=== PATIENT | female | born 1965 | race Caucasian/White ===

== ENCOUNTER 2016-07-21 14:19 | Observation (INO) | payer MEDICAID ==
--- NOTE | 2016-07-21 14:58 | ERPHSYRPT ---
- History of Present Illness Time Seen by Provider: 07/21/16 14:49 Historian: patient Exam Limitations: no limitations Patient Subjective Stated Complaint: transport car brought pt post drs appt for altered loc/chest pain Triage Nursing Assessment: pt states she felt fine after drs appt and on transport back home pt states she 'felt weird and chest was heavy' when this nurse went out to transport car, pt was unconscious but breathing--sternal rub woke pt up and pt got up to wheelcahir with standby assist. got out of wheelchair to bed without diff. pt skin warm and dry. pt states 'lt side feels funny and my chest is heavy' denies n/v. Physician History: The patient is a 51-year-old female who complains of left-sided chest pain and passing out while being a passenger in a car. She was in a transport vehicle after being seen for a monthly checkup at her primary care doctor's office when she developed left-sided chest pain, headache, and then blacking out until arriving at the ER. She still has left-sided chest pain. She still has a headache. She has not had an NH in the past. She states she's had 3 TIAs in the past. She takes no blood thinners. She's had 2 C-sections, tubal ligation , gallbladder removed, and tonsils removed. She does not smoke. Timing/Duration: today Activities at Onset: rest Quality: pressure Location: substernal Chest Pain Radiation: back Severity of Pain-Max: severe Severity of Pain-Current: severe Modifying Factors: Improves With: nothing Associated Symptoms: nausea, syncope Prior Chest Pain/Cardiac Workup: no prior chest pain Nitro Today/Relief: no nitro taken today Aspirin Treatment Today: no aspirin today Allergies/Adverse Reactions: codeine Allergy (Mild, Verified 07/21/16 14:27) aripiprazole [From Abilify] Allergy (Verified 07/21/16 14:27) aspirin Allergy (Verified 07/21/16 14:27) ibuprofen Allergy (Verified 07/21/16 14:27) ketorolac tromethamine [From Toradol] Allergy (Verified 07/21/16 14:27) quetiapine fumarate [From Seroquel] Allergy (Verified 07/21/16 14:27) tramadol Allergy (Verified 02/15/17 14:27) acetaminophen [From Vicodin] Adverse Reaction (Verified 07/21/16 14:27) VOMITED hydrocodone bitartrate [From Vicodin] Adverse Reaction (Verified 07/21/16 14:27) VOMITED Home Medications: Carvedilol 12.5 mg [Coreg 12.5 mg] 12.5 mg PO BID 09/28/15 [History] Levothyroxine Sodium 75 Mcg [Synthroid 75 Mcg] 100 mcg PO DAILY 09/28/15 [ History] Methylphenidate 5 mg [Ritalin 5 MG] 20 mg PO TID 12/09/15 [History] Alprazolam [Xanax Xr] 3 mg PO DAILY 05/07/16 [History] Chlorpromazine HCl 25 mg [Thorazine 25 mg] 100 mg PO BID 07/21/16 [History ] Hx Tetanus, Diphtheria Vaccination/Date Given: Yes Hx Influenza Vaccination/Date Given: Yes Hx Pneumococcal Vaccination/Date Given: No Immunizations Up to Date: Yes - Review of Systems Constitutional: No Fever, No Chills Eyes: No Symptoms Ears, Nose, & Throat: No Symptoms Respiratory: No Cough, No Dyspnea Cardiac: Chest Pain Abdominal/Gastrointestinal: No Abdominal Pain, No Nausea, No Vomiting, No Diarrhea Genitourinary Symptoms: No Dysuria Musculoskeletal: No Back Pain, No Neck Pain Skin: No Rash Neurological: Headache Psychological: No Symptoms Endocrine: No Symptoms Hematologic/Lymphatic: No Symptoms Immunological/Allergic: No Symptoms All Other Systems: Reviewed and Negative - Past Medical History Pertinent Past Medical History: Yes Neurological History: Migraines, TIA ENT History: No Pertinent History Cardiac History: Hypertension Respiratory History: No Pertinent History Endocrine Medical History: Hypothyroidism Musculoskeletal History: Arthritis, Degenerative Disk Disease, Fibromyalgia GI Medical History: GERD History: No Pertinent History Psycho-Social History: Anxiety, Attention Deficit Disorder, Depression, Panic Disorder Female Reproductive Disorders: No Pertinent History Other Medical History: Chronic Fatigue Syndrome, Herniated discs, Raynaud's. POLYCYSTIC KIDNEY DISEASE - Past Surgical History Past Surgical History: Yes Neuro Surgical History: No Pertinent History Cardiac: No Pertinent History Respiratory: No Pertinent History Gastrointestinal: Cholecystectomy Genitourinary: No Pertinent History Musculoskeletal: Other Female Surgical History: Section, Tubal Ligation Other Surgical History: neck fusion. carpal tunnel. raynauds surgery - Social History Smoking Status: Never smoker Exposure to second hand smoke: No Alcohol Use: None Drug Use: none Patient Lives Alone: No Significant Family History: hypertension - Female History Hx Now: No - Nursing Vital Signs Temperature: 97.9 F Temperature Source: Oral Pulse Rate: 86 Respiratory Rate: 18 Pain Intensity: 8 - Physical Exam General Appearance: moderate distress ([place] [facility] will need some labs and should probably nitroglycerin she has a chest pain) Eye Exam: PERRL/EOMI, other (right pupil is 5 to 6 mm and left pupil is 2 to 3 mm. Pt states pupils are normally equal.) Ears, Nose, Throat Exam: normal ENT inspection, moist mucous membranes Neck Exam: normal inspection, non-tender, supple, full range of motion Respiratory Exam: normal breath sounds, lungs clear, No respiratory distress Cardiovascular Exam: regular rate/rhythm, normal heart sounds Gastrointestinal/Abdomen Exam: soft, No tenderness, No mass Pelvic Exam: not done Rectal Exam: not done Back Exam: normal inspection, No CVA tenderness, No vertebral tenderness Extremity Exam: normal inspection, normal range of motion Neurologic Exam: alert, oriented x 3, cooperative, service administrator II-XII nml as tested, normal mood/affect, sensation nml, No motor deficits Skin Exam: normal color, warm, dry SpO2 Interpretation: normal SpO2: 97 Oxygen Delivery: Room Air - Course EKG Interpreted by Me: Sinus Rhythm, Left [place] Deviation, NORMAL QRS, NORMAL ST- T, Other (No change compared to EKG 11/17/15) - Radiology Exams Chest X-ray Interpretation: Teleradiologist Report, Negative - CT Exams Head CT Interpretation: Negative, Tele-radiologist Report Ordered Tests: Active Orders 24 hr Category Date Time Status Podiatric Medicine Professor STAT Care 07/21/16 17:02 Active Catheter-[place] STAT Care 07/21/16 17:10 Completed [place] [Catheter-[place]] STAT Care 07/21/16 16:58 Active IV Insertion STAT Care 07/21/16 14:58 Active CHEST 2 VIEWS (PA AND LAT) Stat Exams 07/21/16 15:00 Completed HEAD WITHOUT CONTRAST [CT] Stat Exams 07/21/16 14:58 Completed CBC W DIFF Stat Lab 07/21/16 15:40 Completed CMP Stat Lab 07/21/16 15:40 Completed CULTURE,URINE Stat Lab 07/21/16 17:11 Ordered Ethyl Alcohol,Urine Stat Lab 07/21/16 15:50 Completed PROTIME WITH INR Stat Lab 07/21/16 15:40 Completed PTT Stat Lab 07/21/16 15:40 Completed TROPONIN Q3H Lab 07/21/16 15:40 Completed TROPONIN Q3H Lab 07/21/16 18:00 Ordered TROPONIN Q3H Lab 07/21/16 21:00 Ordered TROPONIN Q3H Lab 07/22/16 00:00 Ordered TROPONIN Q3H Lab 07/22/16 03:00 Ordered UA Stat Lab 07/21/16 15:50 Completed UA Stat Lab 07/21/16 17:10 Completed Urine Triage Profile Stat Lab 07/21/16 15:50 Completed Lab/Rad Data: Laboratory Result Diagrams 07/21/16 15:40 07/21/16 15:40 Laboratory Results 07/21/16 07/21/16 07/21/16 Range/Units 17:10 15:50 15:50 WBC (4.0-10.5) K/mm3 RBC (4.1-5.4) M/mm3 Hgb (12.0-16.0) gm/dl Hct (35-47) % MCV (78-100) fl MCH (26-32) pg MCHC (32-36) g/dl RDW (11.5-14.0) % Plt Count (150-450) K/mm3 MPV (6-9.5) fl Gran % (36.0-66.0) % Lymphocytes % (24.0-44.0) % Monocytes % (0.0-12.0) % Eosinophils % (0.00-5.0) % Basophils % (0.0-0.4) % Basophils # (0-0.4) INR (0.8-3.0) PTT (25.3-37.0) SECONDS Sodium (136-145) mEq/L Potassium (3.5-5.1) mEq/L Chloride (98-107) mEq/L Carbon Dioxide (21-32) mEq/L Anion Gap (5-15) MEQ/L BUN (9-20) mg/dL Creatinine (0.55-1.30) mg/dl Estimated GFR ML/MIN Glucose (70-110) MG/DL Calcium (8.5-10.1) mg/dL Total Bilirubin (0.2-1.0) mg/dL AST (15-37) U/L ALT (12-78) U/L Alkaline Phosphatase (46-116) U/L Troponin I (0.000-0.056) ng/ml Serum Total Protein (6.4-8.2) gm/dL Albumin (3.4-5.0) g/dL Ur Collection Type CATH Urine Color LT.YELLOW (YELLOW) Urine Appearance CLEAR (CLEAR) Urine pH 7.5 7.5 (5-6) Ur Specific [place] 1.015 (1.005-1.025) Urine Protein NEGATIVE (Negative) Urine Glucose (UA) NEGATIVE (NEGATIVE) mg/dL Urine Ketones NEGATIVE (NEGATIVE) Urine Nitrite NEGATIVE (NEGATIVE) Urine Bilirubin NEGATIVE (NEGATIVE) Urine Urobilinogen 0.2 (0-1) mg/dL Urine WBC (Auto) NEGATIVE (NEGATIVE) Urine RBC (Auto) NEGATIVE (0-5) [place]/ul Urine Opiates Level NEG. (NEGATIVE) Ur Methadone NEG. (NEGATIVE) Urine Barbiturates NEG. (NEGATIVE) Ur Phencyclidine (PCP) NEG. (NEGATIVE) Urine Amphetamine NEG. (NEGATIVE) U Benzodiazepine Level POS. (NEGATIVE) Urine Cocaine NEG. (NEGATIVE) Urine Marijuana (THC) NEG. (NEGATIVE) Urine Ethyl Alcohol 0 (0.00-20) mg/dl Specimen Received 07/21/1716:10 07/21/16 07/21/16 07/21/16 Range/Units 15:50 15:40 15:40 WBC (4.0-10.5) K/mm3 RBC (4.1-5.4) M/mm3 Hgb (12.0-16.0) gm/dl Hct (35-47) % MCV (78-100) fl MCH (26-32) pg MCHC (32-36) g/dl RDW (11.5-14.0) % Plt Count (150-450) K/mm3 MPV (6-9.5) fl Gran % (36.0-66.0) % Lymphocytes % (24.0-44.0) % Monocytes % (0.0-12.0) % Eosinophils % (0.00-5.0) % Basophils % (0.0-0.4) % Basophils # (0-0.4) INR 0.88 (0.8-3.0) PTT 34.4 (25.3-37.0) SECONDS Sodium (136-145) mEq/L Potassium (3.5-5.1) mEq/L Chloride (98-107) mEq/L Carbon Dioxide (21-32) mEq/L Anion Gap (5-15) MEQ/L BUN (9-20) mg/dL Creatinine (0.55-1.30) mg/dl Estimated GFR ML/MIN Glucose (70-110) MG/DL Calcium (8.5-10.1) mg/dL Total Bilirubin (0.2-1.0) mg/dL AST (15-37) U/L ALT (12-78) U/L Alkaline Phosphatase (46-116) U/L Troponin I < 0.017 (0.000-0.056) ng/ml Serum Total Protein (6.4-8.2) gm/dL Albumin (3.4-5.0) g/dL Ur Collection Type VOID Urine Color LT.YELLOW (YELLOW) Urine Appearance CLEAR (CLEAR) Urine pH 7.5 (5-6) Ur Specific [place] 1.015 (1.005-1.025) Urine Protein NEGATIVE (Negative) Urine Glucose (UA) NEGATIVE (NEGATIVE) mg/dL Urine Ketones NEGATIVE (NEGATIVE) Urine Nitrite NEGATIVE (NEGATIVE) Urine Bilirubin NEGATIVE (NEGATIVE) Urine Urobilinogen 0.2 (0-1) mg/dL Urine WBC (Auto) NEGATIVE (NEGATIVE) Urine RBC (Auto) NEGATIVE (0-5) [place]/ul Urine Opiates Level (NEGATIVE) Ur Methadone (NEGATIVE) Urine Barbiturates (NEGATIVE) Ur Phencyclidine (PCP) (NEGATIVE) Urine Amphetamine (NEGATIVE) U Benzodiazepine Level (NEGATIVE) Urine Cocaine (NEGATIVE) Urine Marijuana (THC) (NEGATIVE) Urine Ethyl Alcohol (0.00-20) mg/dl Specimen Received 07/21/16 1550 07/21/16 07/21/16 Range/Units 15:40 15:40 WBC 4.9 (4.0-10.5) K/mm3 RBC 3.92 L (4.1-5.4) M/mm3 Hgb 12.1 (12.0-16.0) gm/dl Hct 36.9 (35-47) % MCV 94.1 (78-100) fl MCH 30.8 (26-32) pg MCHC 32.8 (32-36) g/dl RDW 13.2 (11.5-14.0) % Plt Count 261 (150-450) K/mm3 MPV 9.6 H (6-9.5) fl Gran % 69.0 H (36.0-66.0) % Lymphocytes % 22.7 L (24.0-44.0) % Monocytes % 6.1 (0.0-12.0) % Eosinophils % 1.8 (0.00-5.0) % Basophils % 0.4 (0.0-0.4) % Basophils # 0.02 (0-0.4) INR (0.8-3.0) PTT (25.3-37.0) SECONDS Sodium 141 (136-145) mEq/L Potassium 4.6 (3.5-5.1) mEq/L Chloride 106 (98-107) mEq/L Carbon Dioxide 25.8 (21-32) mEq/L Anion Gap 14.2 (5-15) MEQ/L BUN 19 (9-20) mg/dL Creatinine 1.20 (0.55-1.30) mg/dl Estimated GFR 50 ML/MIN Glucose 96 (70-110) MG/DL Calcium 9.0 (8.5-10.1) mg/dL Total Bilirubin 0.4 (0.2-1.0) mg/dL AST 423 H (15-37) U/L ALT 459 H (12-78) U/L Alkaline Phosphatase 111 (46-116) U/L Troponin I (0.000-0.056) ng/ml Serum Total Protein 7.2 (6.4-8.2) gm/dL Albumin 3.5 (3.4-5.0) g/dL Ur Collection Type Urine Color (YELLOW) Urine Appearance (CLEAR) Urine pH (5-6) Ur Specific [place] (1.005-1.025) Urine Protein (Negative) Urine Glucose (UA) (NEGATIVE) mg/dL Urine Ketones (NEGATIVE) Urine Nitrite (NEGATIVE) Urine Bilirubin (NEGATIVE) Urine Urobilinogen (0-1) mg/dL Urine WBC (Auto) (NEGATIVE) Urine RBC (Auto) (0-5) [place]/ul Urine Opiates Level (NEGATIVE) Ur Methadone (NEGATIVE) Urine Barbiturates (NEGATIVE) Ur Phencyclidine (PCP) (NEGATIVE) Urine Amphetamine (NEGATIVE) U Benzodiazepine Level (NEGATIVE) Urine Cocaine (NEGATIVE) Urine Marijuana (THC) (NEGATIVE) Urine Ethyl Alcohol (0.00-20) mg/dl Specimen Received - Progress Progress: unchanged Air Movement: good Progress Note: 07/21/16 16:58 Pt states she has not urinated for 24 hrs. 07/21/16 17:29 IV access has not been obtained after 12 attempts. Discussed with : Levi Will see patient in: hospital (observation) Counseled pt/family regarding: lab results, diagnosis, rad results - Departure Time of Disposition: 17:30 Departure Disposition: Observation (per Dr Sims) Clinical Impression: Chest pain Condition: Stable Critical Care Time: No
[2016-07-21 15:46] LABS: BASOPHIL % 0.4 % (0.0-0.4); Eosinophil % 1.8 % (0.00-5.0); Lymphocytes % 22.7 % (24.0-44.0); Mean Cell Volume 94.1 fl (78-100); Mean Platelet Volume 9.6 fl (6-9.5); Monocytes % 6.1 % (0.0-12.0); Platelet Count 261 K/mm3 (150-450); Red Blood Count 3.92 M/mm3 (4.1-5.4); Red Cell Distribution Width 13.2 % (11.5-14.0); White Blood Count 4.9 K/mm3 (4.0-10.5)
[2016-07-21 15:53] LABS: Mean Corpuscular Hemoglobin 30.8 pg (26-32)
[2016-07-21 16:04] LABS: COMPLETE URINE MICROSCOPIC? NO; Collection Type VOID; Ph 7.5 (5-6)
[2016-07-21 16:21] LABS: ALBUMIN 3.5 g/dL (3.4-5.0); ANION GAP 14.2 MEQ/L (5-15); BILIRUBIN,TOTAL 0.4 mg/dL (0.2-1.0); Carbon Dioxide 25.8 mEq/L (21-32); Potassium 4.6 mEq/L (3.5-5.1); Total Protein 7.2 gm/dL (6.4-8.2)
[2016-07-21 16:28] LABS: INR 0.88 (0.8-3.0); PROTIME 9.9 SECONDS (9.95-12.35)
[2016-07-21 16:30] LABS: PTT 34.4 SECONDS (25.3-37.0)
--- NOTE | 2016-07-21 16:36 | XRAY ---
Indication: Chest pain. Comparison: May 13, 2016. AP/lateral chest again demonstrates normal heart and lungs. Bony thorax intact. No new/acute findings.
--- NOTE | 2016-07-21 16:36 | XRAY ---
Indication: Syncope. Multiple contiguous axial images obtained through the head without contrast. Comparison: December 19, 2014 Stable normal appearing brain parenchyma, ventricles, and bony calvarium. Visualized paranasal sinuses and mastoid air cells are pneumatized and clear. Impression: Stable normal CT head without contrast exam. CTDI 69.79
[2016-07-21 17:26] LABS: Collection Type CATH
[2016-07-21 17:27] LABS: COMPLETE URINE MICROSCOPIC? NO; Ph 7.5 (5-6)
[2016-07-21] MEDS ORDERED: TYLENOL 325 MG PO PRN (17:53)
[2016-07-21] MEDS ORDERED: MAALOX ES 30 ML UNIT DOSE PO PRN (17:53)
[2016-07-21] MEDS ORDERED: Senokot-S Tablet PO PRN (17:53)
[2016-07-21] MEDS ORDERED: MILK OF MAGNESIA 30 ML PO PRN (17:53)
[2016-07-21] MEDS ORDERED: XYLOCAINE 1% HCL 20 ML MDV ONE (20:37)
[2016-07-21] MEDS ORDERED: SUBLIMAZE 100 MCG/2 ML IV ONE (21:03)
[2016-07-21] MEDS ORDERED: Nitrostat 0.4 MG Tablet SL ONE (21:09)
[2016-07-21] MEDS: Nitrostat 0.4 MG Tablet SL PRN ×3 (21:13→21:34)
[2016-07-21] MEDS: XANAX 1 MG PO PRN (21:13)
[2016-07-21] MEDS: THORAZINE PO SCH (22:31)
[2016-07-21] MEDS: Ritalin 5 MG PO SCH (22:32)
[2016-07-21] MEDS: COREG 12.5 MG PO SCH (22:33)
[2016-07-21] MEDS: SUBLIMAZE 100 MCG/2 ML IV PRN (22:41)
[2016-07-22] MEDS: SUBLIMAZE 100 MCG/2 ML IV PRN ×5 (03:16→19:51)
--- NOTE | 2016-07-22 08:20 | PCM.HP ---
History of Present Illness - Chief Complaint Chief Complaint: chest pain History of Present Illness: is a 51 year old female with no local physician, she was in a medi-cab on the way home from seeing Dr Choe her primary physician yesterday. She reports that she developed a crushing, heavy chest pain and then apparently there was a loss of consciousness. She continues to have heaviness in her chest , she reports there was some minimal improvement with nitro but not significant , fentanyl improves her pain. There is some associated dyspnea, no nausea/ vomiting or diaphoresis. - Review of Systems Constitutional: No Fever, No Chills Respiratory: No Cough, No Short Of Breath Cardiac: Chest Pain Abdominal/Gastrointestinal: No Abdominal Pain, No Nausea, No Vomiting, No Diarrhea Skin: No Rash All Other Systems: Reviewed and Negative Medications & Allergies Home Medications: Home Medication List Carvedilol 12.5 mg [Coreg 12.5 mg] 12.5 mg PO BID 09/28/15 [History Confirmed 07/21/16] Levothyroxine Sodium 75 Mcg [Synthroid 75 Mcg] 100 mcg PO DAILY 09/28/15 [ History Confirmed 07/21/16] Methylphenidate 5 mg [Ritalin 5 MG] 20 mg PO TID 12/09/15 [History Confirmed 07/21/16] Alprazolam [Xanax Xr] 3 mg PO DAILY 05/07/16 [History Confirmed 07/21/16] Chlorpromazine HCl 25 mg [Thorazine 25 mg] 100 mg PO BID 07/21/16 [ History Confirmed 07/21/16] Allergies/Adverse Reactions: Allergies Allergy/AdvReac Type Severity Reaction Status Date / Time codeine Allergy Mild Verified 07/21/16 14:27 aripiprazole [From Abilify] Allergy Verified 07/21/16 14:27 aspirin Allergy Verified 07/21/16 14:27 ibuprofen Allergy Verified 07/21/16 14:27 ketorolac tromethamine Allergy Verified 07/21/16 14:27 [From Toradol] quetiapine fumarate Allergy Verified 07/21/16 14:27 [From Seroquel] tramadol Allergy Verified 07/21/16 14:27 acetaminophen [From Vicodin] AdvReac VOMITED Verified 07/21/16 14:27 hydrocodone bitartrate AdvReac VOMITED Verified 07/21/16 14:27 [From Vicodin] - Past Medical History Past Medical History: Yes Neurological History: Migraines, TIA ENT History: No Pertinent History Cardiac History: Hypertension Respiratory History: No Pertinent History Endocrine Medical History: Hypothyroidism Musculoskelatal History: Arthritis, Degenerative Disk Disease, Fibromyalgia GI Medical History: GERD History: No Pertinent History Pyscho-Social History: Anxiety, Attention Deficit Disorder, Depression, Panic Disorder Reproductive Disorders: No Pertinent History Comment: Chronic Fatigue Syndrome, Herniated discs, Raynaud's. POLYCYSTIC KIDNEY DISEASE - Female History Are you now?: No - Past Surgical History Past Surgical History: Yes Neuro Surgical History: No Pertinent History Cardiac History: No Pertinent History Respiratory Surgery: No Pertinent History GI Surgical History: Cholecystectomy Genitourinary Surgical Hx: No Pertinent History Musculskeletal Surgical Hx: Other Female Surgical History: Section, Tubal Ligation Other Surgical History: neck fusion. carpal tunnel. raynauds surgery - Social History Smoking Status: Never smoker Exposure to second hand smoke: No Alcohol: None Drug Use: none Significant Family History: hypertension - Physical Exam Vital Signs: Vital Signs - 24 hr Temp Pulse Resp BP Pulse Ox 07/22/16 07:32 97.9 F 77 20 126/65 95 07/22/16 04:00 97.7 F 70 17 101/59 93 L 07/22/16 00:00 98.0 F 79 16 98/54 94 L 07/21/16 20:00 98.1 F 89 18 113/54 95 07/21/16 18:12 98.3 F 73 19 126/59 98 07/21/16 17:33 97.9 F 86 18 97 07/21/16 17:08 88 16 123/62 97 07/21/16 16:18 84 20 123/59 98 07/21/16 14:20 97.9 F 86 18 130/53 97 General Appearance: no apparent distress, alert Respiratory Exam: normal breath sounds, lungs clear, No respiratory distress Cardiovascular Exam: regular rate/rhythm, normal heart sounds, normal peripheral pulses Gastrointestinal/Abdomen Exam: soft, normal bowel sounds, No tenderness, No mass Extremity Exam: normal inspection, normal range of motion, pelvis stable Skin Exam: normal color, warm, dry, No rash Results - Labs Lab/Micro Results: Lab Results-Last 24 Hours 07/21/16 07/21/16 07/22/16 Range/Units 18:16 21:02 01:15 Troponin I < 0.017 < 0.017 < 0.017 (0.000-0.056) ng/ml Triglycerides (30-200) mg/dL Cholesterol (100-200) mg/dL LDL Cholesterol (5-99) mg/dL HDL Cholesterol (35-60) mg/dL Heart Disease Risk Ratio 07/22/16 07/22/16 Range/Units 04:05 04:05 Troponin I < 0.017 (0.000-0.056) ng/ml Triglycerides 78 (30-200) mg/dL Cholesterol 220 H (100-200) mg/dL LDL Cholesterol 107 H (5-99) mg/dL HDL Cholesterol 75 H (35-60) mg/dL Heart Disease Risk Ratio 2.9 - Other Procedures and Tests Respiratory Therapy 07/23/16 05:00 EKG ONCE 07/24/16 05:00 EKG ONCE Assessment/Plan (1) Chest pain Current Visit: Yes Status: Acute Assessment & Plan: IA ruled out but has multiple risk factors including TIA (hx of aspirin allergy) , will check d-dimer and echo. will consult [facility] cardiology to further risk stratify and help with further workup/management Code(s): R07.9 - CHEST PAIN, UNSPECIFIED (2) Polycystic kidney disease Current Visit: No Status: Chronic Code(s): Q61.3 - POLYCYSTIC KIDNEY, UNSPECIFIED (3) Renal insufficiency Current Visit: No Status: Chronic
[2016-07-22] MEDS: Protonix 40MG Tablet PO SCH (09:17)
[2016-07-22] MEDS: Ecotrin 325 MG PO SCH ×2 (09:17→09:18)
[2016-07-22] MEDS: COREG 12.5 MG PO SCH ×2 (09:17→21:53)
[2016-07-22] MEDS: THORAZINE PO SCH ×2 (09:17→21:53)
[2016-07-22] MEDS: Ritalin 5 MG PO SCH ×3 (09:17→21:53)
[2016-07-22] MEDS: Zofran 4 MG/2 ML VIAL IV PRN ×3 (09:23→21:59)
[2016-07-22] MEDS: XANAX 1 MG PO PRN ×2 (15:38→21:59)
[2016-07-23] MEDS: SUBLIMAZE 100 MCG/2 ML IV PRN ×2 (00:45→06:02)
[2016-07-23 04:24] LABS: HEPATITIS B VIRUS CORE TOT AB Non-Reactive (Non-Reactive); Hepatitis B Surface Ab.Quant. <3.50 mIU/mL (0.00-8.49)
[2016-07-23 06:25] LABS: BASOPHIL % 0.4 % (0.0-0.4); Eosinophil % 3.2 % (0.00-5.0); Granulocytes % 46.3 % (36.0-66.0); Lymphocytes % 41.4 % (24.0-44.0); Mean Platelet Volume 9.3 fl (6-9.5); Monocytes % 8.7 % (0.0-12.0); Platelet Count 260 K/mm3 (150-450); Red Blood Count 4.01 M/mm3 (4.1-5.4); Red Cell Distribution Width 13.6 % (11.5-14.0); White Blood Count 5.7 K/mm3 (4.0-10.5)
[2016-07-23 06:27] LABS: Mean Corpuscular Hemoglobin 30.6 pg (26-32)
[2016-07-23 06:44] LABS: ALBUMIN 3.2 g/dL (3.4-5.0); ALKALINE PHOSPHATASE 94 U/L (46-116); ANION GAP 11.4 MEQ/L (5-15); BILIRUBIN,TOTAL 0.5 mg/dL (0.2-1.0); BLOOD UREA NITROGEN 17 mg/dL (9-20); CHLORIDE 105 mEq/L (98-107); Carbon Dioxide 28.1 mEq/L (21-32); Glucose 102 MG/DL (70-110); Potassium 3.9 mEq/L (3.5-5.1); SGOT/AST 97 U/L (15-37); SGPT/ALT 247 U/L (12-78); SODIUM 141 mEq/L (136-145); Total Protein 7.1 gm/dL (6.4-8.2)
[2016-07-23 06:54] LABS: TROPONIN < 0.017 ng/ml (0.000-0.056)
--- NOTE | 2016-07-23 08:04 | CONS ---
CONSULT DATE: 07/22/2016 BRIEF HISTORY: This is a 51 year-old female who was seen because of chest pains. The patient states that she just came from a doctor's visit and apparently developed chest pain and passed out. She was then admitted at [facility]. Serial troponin I's have been normal. She described the pain as localized in the precordial area, tight with no other associated symptoms. She has been seen previously for chest pains and this was almost a year ago and apparently she did not having pharmacologic stress test. She stated that she can still get around without having any chest pains. She has never had myocardial infarction or heart failure. She denies any paroxysmal nocturnal dyspnea or orthopnea. She has a history of fibromyalgia. CARDIAC RISK FACTORS: Positive hypertension. No diabetes. No hyperlipidemia. She does not smoke. FAMILY HISTORY: Negative for premature coronary artery disease. CURRENT MEDICATIONS: Carvedilol, aspirin, Alprazolam, Fentanyl PRN, Thorazine, Ritalin. REVIEW OF SYSTEMS: FILTER PRESS TENDER: There is no history of stroke. RESPIRATORY: She has occasional cough but no hemoptysis. GI: No history of peptic ulcer or colon disorder. : Negative for dysuria or hematuria. PERIPHERAL VASCULAR: No history of DVT or claudication. PAST SURGICAL HISTORY: Included section, tubal ligation, neck surgery, carpal tunnel syndrome, cholecystectomy, surgery to the right wrist. SOCIAL HISTORY: She is . She denies any significant alcohol intake. PHYSICAL EXAMINATION: Her blood pressure is 101/59, respirations about 14. GENERAL: The patient is a middle aged female who is alert, oriented, not in any form of distress. HEENT: Unremarkable. NECK: No significant JVD. No carotid bruit. CHEST: The breath sounds are clear. There is some tenderness in the costochondral junction. CARDIAC: Heart tones are within normal. The rhythm is regular. There is no audible gallop. ABDOMEN: Soft with normal bowel sounds. No bruit. EXTREMITIES: No significant edema with palpable distal pulses. LAB DATA AND DIAGNOSTIC TESTS: The serial troponin I's are within normal. The EKG shows normal sinus rhythm, left anterior hemiblock. IMPRESSION: 1) Chest pains, myocardial infarction has been ruled out. I would suggest a coronary calcium scoring for risk stratification. If this is not feasible she would need a pharmacological stress test. 2) Hypertension currently controlled. RECOMMENDATION: Further recommendations will be made after all the tests have been completed.
--- NOTE | 2016-07-23 08:05 | PCM.DS ---
Discharge Summary Date of Admission: 07/21/16 17:51 Admitting Physician: ELY BELL Consults: Consults on Case 07/22/16 08:26 Cardiology Consult [Notify Mission Commander of Admit] ROUTINE 07/22/16 14:24 Consult Cardiology ROUTINE Primary Care Provider: ELLIOTT CHOE Allergies Allergies codeine Allergy (Mild, Verified 07/21/16 14:27) aripiprazole [From Abilify] Allergy (Verified 07/21/16 14:27) aspirin Allergy (Verified 07/21/16 14:27) ibuprofen Allergy (Verified 07/21/16 14:27) ketorolac tromethamine [From Toradol] Allergy (Verified 07/21/16 14:27) quetiapine fumarate [From Seroquel] Allergy (Verified 07/21/16 14:27) tramadol Allergy (Verified 07/21/16 14:27) acetaminophen [From Vicodin] Adverse Reaction (Verified 07/21/16 14:27) VOMITED hydrocodone bitartrate [From Vicodin] Adverse Reaction (Verified 07/21/16 14:27) VOMITED Hospital Summary - Hospital Course Hospital Course: patient was admitted with chest pain and possibly syncopal episode. [place] was ruled out, she was seen by cardiology who recommends outpatient calcium risk score. she is feeling better, initially LFT were moderately elevated, hepatitis profile was negative. liver u/s pending but LFT's have improved dramatically since admission so can be followed up on an outpatient basis. - Vitals & Intake/Output Vital Signs: Vital Signs Temperature 97.5 F 07/23/16 04:00 Pulse Rate 79 07/23/16 04:00 Respiratory Rate 16 07/23/16 04:00 Blood Pressure 117/56 07/23/16 04:00 O2 Sat by Pulse Oximetry 91 L 07/23/16 04:00 Intake & Output: Intake & Output 07/20/16 07/21/16 07/22/16 07/23/16 11:59 11:59 11:59 11:59 Intake Total 400 850 Output Total 1100 1350 Balance -700 -500 Weight 95.708 kg - Lab Result Diagrams: 07/23/16 06:17 07/23/16 06:17 Lab Results-Last 24 Hrs: Lab Results-Last 24 Hours 07/22/16 07/22/1607/23/17 Range/Units 09:08 09:08 06:17 WBC 5.7 (4.0-10.5) K/mm3 RBC 4.01 L (4.1-5.4) M/mm3 Hgb 12.3 (12.0-16.0) gm/dl Hct 38.1 (35-47) % MCV 95.0 (78-100) fl MCH 30.6 (26-32) pg MCHC 32.3 (32-36) g/dl RDW 13.6 (11.5-14.0) % Plt Count 260 (150-450) K/mm3 MPV 9.3 (6-9.5) fl Gran % 46.3 (36.0-66.0) % Lymphocytes % 41.4 (24.0-44.0) % Monocytes % 8.7 (0.0-12.0) % Eosinophils % 3.2 (0.00-5.0) % Basophils % 0.4 (0.0-0.4) % Basophils # 0.02 (0-0.4) D-Dimer 0.363 (0.00-0.49) mg/L Sodium (136-145) mEq/L Potassium (3.5-5.1) mEq/L Chloride (98-107) mEq/L Carbon Dioxide (21-32) mEq/L Anion Gap (5-15) MEQ/L BUN (9-20) mg/dL Creatinine (0.55-1.30) mg/dl Estimated GFR ML/MIN Glucose (70-110) MG/DL Calcium (8.5-10.1) mg/dL Total Bilirubin (0.2-1.0) mg/dL AST (15-37) U/L ALT (12-78) U/L Alkaline Phosphatase (46-116) U/L Troponin I (0.000-0.056) ng/ml Serum Total Protein (6.4-8.2) gm/dL Albumin (3.4-5.0) g/dL Hepatitis A IgM Ab Non-Reactive (Non-Reactive) Hep Bs Antigen Non-Reactive (Non-Reactive) Hep Bs Antibody, Quant <3.50 (0.00-8.49) mIU/mL Hep B Core Total Ab Ref Non-Reactive (Non-Reactive) Hepatitis C Antibody Non-Reactive (Non-Reactive) 07/23/16 Range/Units 06:17 WBC (4.0-10.5) K/mm3 RBC (4.1-5.4) M/mm3 Hgb (12.0-16.0) gm/dl Hct (35-47) % MCV (78-100) fl MCH (26-32) pg MCHC (32-36) g/dl RDW (11.5-14.0) % Plt Count (150-450) K/mm3 MPV (6-9.5) fl Gran % (36.0-66.0) % Lymphocytes % (24.0-44.0) % Monocytes % (0.0-12.0) % Eosinophils % (0.00-5.0) % Basophils % (0.0-0.4) % Basophils # (0-0.4) D-Dimer (0.00-0.49) mg/L Sodium 141 (136-145) mEq/L Potassium 3.9 (3.5-5.1) mEq/L Chloride 105 (98-107) mEq/L Carbon Dioxide 28.1 (21-32) mEq/L Anion Gap 11.4 (5-15) MEQ/L BUN 17 (9-20) mg/dL Creatinine 1.29 (0.55-1.30) mg/dl Estimated GFR 46 ML/MIN Glucose 102 (70-110) MG/DL Calcium 9.3 (8.5-10.1) mg/dL Total Bilirubin 0.5 (0.2-1.0) mg/dL AST 97 H (15-37) U/L ALT 247 H (12-78) U/L Alkaline Phosphatase 94 (46-116) U/L Troponin I < 0.017 (0.000-0.056) ng/ml Serum Total Protein 7.1 (6.4-8.2) gm/dL Albumin 3.2 L (3.4-5.0) g/dL Hepatitis A IgM Ab (Non-Reactive) Hep Bs Antigen (Non-Reactive) Hep Bs Antibody, Quant (0.00-8.49) mIU/mL Hep B Core Total Ab Ref (Non-Reactive) Hepatitis C Antibody (Non-Reactive) - Radiology Exams Ordered Rad Exams-Entire Visit: Radiology Procedures Category Date Time Status LIVER OR SPLEEN [US] Stat Exams 07/22/16 08:41 Taken - Procedures and Test Procedures and Tests throughout Hospitalization: Therapy Orders & Screens 07/21/16 18:36 PT Screen per Nursing Assess ONCE Comment: Protocol Order Physician Instructions: Greater than 3 points order PT Admission Screenin Reason For Exam: Triggered on Admission Diagnosis: chest pain Open Wound/Cellutlitis/Pressure Ulcers: No Acute Fx/ORIF/Change in wt bearing status: No Severe MUSCULOSKELETAL pain: Yes ADL Dysfunction: No Acute CVA w/Hemiparesis/Hemiplegia: No Decreased Functional Mobility/Strength: No Sprain/Strain: No Acute Post-op Mobility Dysfunction: No Total Points: 5 07/21/16 22:00 EKG ONCE Comment: 07/22/16 05:00 EKG ONCE Comment: 07/23/16 05:00 EKG ONCE Comment: 07/24/16 05:00 EKG ONCE Comment: Discharge Exam General Appearance: no apparent distress, alert Respiratory Exam: normal breath sounds Cardiovascular Exam: regular rate/rhythm, normal heart sounds Gastrointestinal/Abdomen Exam: soft, No tenderness, No mass Extremity Exam: normal inspection, normal range of motion Final Diagnosis/Problem List - Final Discharge Diagnosis/Problem (1) Chest pain Current Visit: Yes Status: Acute Assessment & Plan: [place] ruled out, outpatient CTCA score to be ordered on discharge. (2) Elevated liver enzymes Current Visit: Yes Status: Acute Assessment & Plan: improved, needs repeated in 1 week (3) Polycystic kidney disease Current Visit: No Status: Chronic (4) Renal insufficiency Current Visit: No Status: Chronic - Discharge Disposition: Home, Self-Care Condition: Stable Prescriptions: Continue Levothyroxine Sodium 75 Mcg [Synthroid 75 Mcg] 100 mcg PO DAILY Carvedilol 12.5 mg [Coreg 12.5 mg] 12.5 mg PO BID Methylphenidate 5 mg [Ritalin 5 MG] 20 mg PO TID Alprazolam [Xanax Xr] 3 mg PO DAILY Chlorpromazine HCl 25 mg [Thorazine 25 mg] 100 mg PO BID Additional Instructions: F/U with Dr. Stokes upon discharge to schedule O/P testing (coronary calcium scoring) that is not offered by our hospital. F/U with Dr Choe next week to have liver functions repeated Follow up with: ELLIOTT CHOE [Primary Care Provider] - ANGELA MYERS [ACTIVE STAFF] - 1 Week
[2016-07-23] MEDS: Zofran 4 MG/2 ML VIAL IV PRN (08:39)
[2016-07-23 08:58] VITALS: BP 105/59; PULSE 70; O2SAT 94
[2016-07-23] MEDS: XANAX 1 MG PO PRN (09:12)
[2016-07-23] MEDS: Ritalin 5 MG PO SCH (09:12)
[2016-07-23] MEDS: COREG 12.5 MG PO SCH (09:12)
[2016-07-23] MEDS: THORAZINE PO SCH (09:12)
[2016-07-23] MEDS: Ecotrin 325 MG PO SCH (09:13)
[2016-07-23] MEDS: Protonix 40MG Tablet PO SCH (09:17)
--- NOTE | 2016-07-23 11:43 | XRAY ---
Indication: Elevated liver function testing. Chest pain. Cholecystectomy. Two-dimensional right upper quadrant abdominal sonogram performed. Comparison: Abdominal sonogram of May 07, 2016. Pancreas not well seen today due to overlying bowel gas. Gallbladder again surgically absent. Common bile duct measures 6 mm, previously 8mm. No intrahepatic biliary distention. Remaining visualized portions of the liver sonographically unremarkable. Normal portal flow. Right kidney measures 11.2 cm in length and again demonstrates a few small cortical cysts. No suspicious solid renal mass or hydronephrosis. No ascites. Impression: 1. Stable right renal cysts and previous cholecystectomy. 2. Nonvisualization of the pancreas. 3. Negative liver sonogram.
== END 2016-07-23 09:55 | disposition home or self-care (01) ==
LOC: ED 14:19 → MED SURG 17:51
PROVIDERS: ADMIT Family Medicine; ATTEND Family Medicine
DX: R07.89 Other chest pain (principal); R74.8 Abnormal levels of other serum enzymes; Q61.3 Polycystic kidney, unspecified; N28.9 Disorder of kidney and ureter, unspecified; I10 Essential (primary) hypertension; E03.9 Hypothyroidism, unspecified; M19.90 Unspecified osteoarthritis, unspecified site; M79.7 Fibromyalgia; K21.9 Gastro-esophageal reflux disease without esophagitis; F41.9 Anxiety disorder, unspecified; F98.8 Other specified behavioral and emotional disorders with onset usually occurring in childhood and adolescence; R53.82 Chronic fatigue, unspecified
CPT/HCPCS: 36415; 51702; 70450; 71020; 76705; 80053; 80061; 80074; 80307; 80320; 81002; 83721; 83986; 84484; 85025; 85379; 85610; 85730; 87086; 93005; 93041; 93268; 99284; 99285; G0378; J2405; J3010

== ENCOUNTER 2016-09-06 15:54 | Observation (INO) | payer MEDICAID ==
--- NOTE | 2016-09-06 16:12 | ERPHSYRPT ---
- History of Present Illness Time Seen by Provider: 09/06/16 15:59 Source: patient, EMS Physician History: CC: headache, right sided weakness, chest pain Hx: 51 y/o patient of Dr Choe brought per [facility]. She has hx of TIA last week seen at [facility] and had neurology consultation per Dr Bray. She states she has had headache and chest pain since yesterday. Today since 1:30PM she has right arm and leg weakness. Similar to symptoms last week. She has been under stress. She has hx of anxiety and depression. EMS states told them he thinks she has stress reaction and needs to see a mental health provider. Denies suicide ideation. Allergies/Adverse Reactions: codeine Allergy (Mild, Verified 09/06/16 16:09) aripiprazole [From Abilify] Allergy (Verified 09/06/16 16:09) aspirin Allergy (Verified 09/06/16 16:09) ibuprofen Allergy (Verified 09/06/16 16:09) ketorolac tromethamine [From Toradol] Allergy (Verified 09/06/16 16:09) quetiapine fumarate [From Seroquel] Allergy (Verified 09/06/16 16:09) tramadol Allergy (Verified 09/06/16 16:09) acetaminophen [From Vicodin] Adverse Reaction (Verified 09/06/16 16:09) VOMITED hydrocodone bitartrate [From Vicodin] Adverse Reaction (Verified 09/06/16 16:09) VOMITED Home Medications: Carvedilol 12.5 mg [Coreg 12.5 mg] 12.5 mg PO BID 09/28/15 [History] Levothyroxine Sodium 75 Mcg [Synthroid 75 Mcg] 100 mcg PO DAILY 09/28/15 [ History] Methylphenidate 5 mg [Ritalin 5 MG] 20 mg PO TID 12/09/15 [History] Alprazolam [Xanax Xr] 3 mg PO DAILY 05/07/16 [History] Chlorpromazine HCl 25 mg [Thorazine 25 mg] 100 mg PO BID 07/21/16 [History ] Hx Tetanus, Diphtheria Vaccination/Date Given: Yes Hx Influenza Vaccination/Date Given: Yes Hx Pneumococcal Vaccination/Date Given: No - Review of Systems Constitutional: No Fever, No Chills Eyes: No Symptoms, No Vision Changes, No Double Vision Ears, Nose, & Throat: No Symptoms Respiratory: No Cough, No Dyspnea Cardiac: Chest Pain Abdominal/Gastrointestinal: No Abdominal Pain, No Nausea, No Vomiting Genitourinary Symptoms: No Symptoms Musculoskeletal: No Back Pain, No Neck Pain Skin: No Rash Neurological: Focal Weakness (right arm and leg), Headache, No Parasthesia All Other Systems: Reviewed and Negative - Past Medical History Pertinent Past Medical History: Yes Neurological History: Migraines, TIA ENT History: No Pertinent History Cardiac History: Hypertension Respiratory History: No Pertinent History Endocrine Medical History: Hypothyroidism Musculoskeletal History: Arthritis, Degenerative Disk Disease, Fibromyalgia GI Medical History: GERD History: No Pertinent History Psycho-Social History: Anxiety, Attention Deficit Disorder, Depression, Panic Disorder Female Reproductive Disorders: No Pertinent History Other Medical History: Chronic Fatigue Syndrome, Herniated discs, Raynaud's. POLYCYSTIC KIDNEY DISEASE - Past Surgical History Past Surgical History: Yes Neuro Surgical History: No Pertinent History Cardiac: No Pertinent History Respiratory: No Pertinent History Gastrointestinal: Cholecystectomy Genitourinary: No Pertinent History Musculoskeletal: Other Female Surgical History: Section, Tubal Ligation Other Surgical History: neck fusion. carpal tunnel. raynauds surgery - Social History Smoking Status: Never smoker Exposure to second hand smoke: No Alcohol Use: None Drug Use: none Patient Lives Alone: No Significant Family History: hypertension - Female History Hx Now: No - Nursing Vital Signs Nursing Vital Signs: Initial Vital Signs Temperature 98.4 F Temperature Source Oral Pulse Rate 100 Respiratory Rate 16 Blood Pressure [Right Arm] 169/93 Pain Intensity 5 - Physical Exam General Appearance: alert Eye Exam: PERRL/EOMI Ears, Nose, Throat Exam: moist mucous membranes Neck Exam: normal inspection, non-tender, supple Respiratory Exam: normal breath sounds, lungs clear Cardiovascular Exam: regular rate/rhythm Gastrointestinal/Abdomen Exam: soft, No tenderness, No distention Extremity Exam: normal inspection Neurologic Exam: alert, oriented x 3, cooperative, other (right facial droop, right arm and leg weakness) Skin Exam: warm, dry - Course Nursing assessment & vital signs reviewed: Yes EKG Interpreted by Me: RATE (94), Sinus Rhythm, NORMAL AXIS, NORMAL INTERVALS ( QTc 438), Non-specific ST Changes - Radiology Exams cxr X-ray Interpretation: Reviewed by me, Negative - CT Exams head CT Interpretation: Negative, Tele-radiologist Report Ordered Tests: Active Orders 24 hr Category Date Time Status Space Systems Operations Manager STAT Care 09/06/16 15:59 Active EKG-ER Only STAT Care 09/06/16 15:59 Active IV Insertion STAT Care 09/06/16 15:59 Active NPO (ED) STAT Care 09/06/16 15:59 Active Pulse Oximetry (ED) STAT Care 09/06/16 15:59 Active Consult Neurology STAT Cons 09/06/16 16:02 Active CHEST 1 VIEW (PORTABLE) Stat Exams 09/06/16 15:59 Taken HEAD WITHOUT CONTRAST [CT] Stat Exams 09/06/16 15:59 Completed CBC W DIFF Stat Lab 09/06/16 16:40 Completed CMP Stat Lab 09/06/16 16:40 Completed Ethyl Alcohol,Urine Stat Lab 09/06/16 16:01 Ordered PROTIME WITH INR Stat Lab 09/06/16 16:40 Completed PTT Stat Lab 09/06/16 16:40 Completed TROPONIN Q3H Lab 09/06/16 16:40 Completed TROPONIN Q3H Lab 09/06/16 19:12 Received TROPONIN Q3H Lab 09/06/16 22:00 Ordered TROPONIN Q3H Lab 09/07/16 01:00 Ordered TROPONIN Q3H Lab 09/07/16 04:00 Ordered UA Stat Lab 09/06/16 16:02 Ordered Urine Triage Profile Stat Lab 09/06/16 16:02 Ordered Medication Summary Discontinued Medications Generic Name Dose Route Start Last Admin Trade Name Freq PRN Reason Stop Dose Admin Sodium Chloride Confirm 09/06/16 19:39 Sodium Chloride 0.9% 1000 Ml Administered 09/06/16 19:40 Dose 1,000 mls @ ud .ROUTE .STK-MED ONE Promethazine HCl 25 mg 09/06/16 18:06 09/06/16 18:23 Phenergan 25 Mg Inj IM 09/06/16 18:07 25 mg STAT ONE Administration Promethazine HCl Confirm 09/06/16 18:20 Phenergan 25 Mg Inj Administered 09/06/16 18:21 Dose 25 mg .ROUTE .STK-MED ONE Lab/Rad Data: Laboratory Result Diagrams 09/06/16 16:40 09/06/16 16:40 Laboratory Results 09/06/16 09/06/16 09/06/16 Range/Units 16:40 16:40 16:40 WBC (4.0-10.5) K/mm3 RBC (4.1-5.4) M/mm3 Hgb (12.0-16.0) gm/dl Hct (35-47) % MCV (78-100) fl MCH (26-32) pg MCHC (32-36) g/dl RDW (11.5-14.0) % Plt Count (150-450) K/mm3 MPV (6-9.5) fl Gran % (36.0-66.0) % Lymphocytes % (24.0-44.0) % Monocytes % (0.0-12.0) % Eosinophils % (0.00-5.0) % Basophils % (0.0-0.4) % Basophils # (0-0.4) INR 0.96 (0.8-3.0) PTT 35.0 (25.3-37.0) SECONDS Sodium 143 (136-145) mEq/L Potassium 4.4 (3.5-5.1) mEq/L Chloride 105 (98-107) mEq/L Carbon Dioxide 29.6 (21-32) mEq/L Anion Gap 12.5 (5-15) MEQ/L BUN 11 (9-20) mg/dL Creatinine 1.34 H (0.55-1.30) mg/dl Estimated GFR 44 ML/MIN Glucose 119 H (70-110) MG/DL Calcium 9.1 (8.5-10.1) mg/dL Total Bilirubin 0.4 (0.2-1.0) mg/dL AST 27 (15-37) U/L ALT 29 (12-78) U/L Alkaline Phosphatase 76 (46-116) U/L Troponin I < 0.017 (0.000-0.056) ng/ml Serum Total Protein 7.6 (6.4-8.2) gm/dL Albumin 3.8 (3.4-5.0) g/dL 09/06/16 Range/Units 16:40 WBC 7.2 (4.0-10.5) K/mm3 RBC 4.66 (4.1-5.4) M/mm3 Hgb 14.1 (12.0-16.0) gm/dl Hct 43.4 (35-47) % MCV 93.1 (78-100) fl MCH 30.3 (26-32) pg MCHC 32.5 (32-36) g/dl RDW 13.2 (11.5-14.0) % Plt Count 228 (150-450) K/mm3 MPV 10.8 H (6-9.5) fl Gran % 74.8 H (36.0-66.0) % Lymphocytes % 18.3 L (24.0-44.0) % Monocytes % 4.0 (0.0-12.0) % Eosinophils % 2.8 (0.00-5.0) % Basophils % 0.1 (0.0-0.4) % Basophils # 0.01 (0-0.4) INR (0.8-3.0) PTT (25.3-37.0) SECONDS Sodium (136-145) mEq/L Potassium (3.5-5.1) mEq/L Chloride (98-107) mEq/L Carbon Dioxide (21-32) mEq/L Anion Gap (5-15) MEQ/L BUN (9-20) mg/dL Creatinine (0.55-1.30) mg/dl Estimated GFR ML/MIN Glucose (70-110) MG/DL Calcium (8.5-10.1) mg/dL Total Bilirubin (0.2-1.0) mg/dL AST (15-37) U/L ALT (12-78) U/L Alkaline Phosphatase (46-116) U/L Troponin I (0.000-0.056) ng/ml Serum Total Protein (6.4-8.2) gm/dL Albumin (3.4-5.0) g/dL - Progress Progress Note: 09/06/16 19:44 Pt has some improvement in weakness. Chest pain better. ASA not given as allergic. SOC neurology consultation advised no further imaging, not TPA candidate, and treat for possible complicated migraine vs somataform disorder. Called Dr Gloria Nassar (oc) and will place in tele obs for further treatment, troponins, and possible mentalhealth evaluation. 09/06/16 19:46 She has no pulse deficit, normal mediastinum on cxr and no suspicion of TAD. Discussed with .: Ellen Will see patient in: hospital (observation) Counseled pt/family regarding: lab results, diagnosis, need for follow-up, rad results - Departure Time of Disposition: 19:45 Departure Disposition: Observation Clinical Impression: Right sided weakness, Chest pain, Headache Condition: Fair Critical Care Time: No
--- NOTE | 2016-09-06 16:35 | XRAY ---
Indication: Altered mental status. Possible stroke. Multiple contiguous axial images obtained through the head without contrast. Comparison: December 19, 2014 Ventriculosulcal pattern appears symmetric. Again no acute intracranial hemorrhage, abnormal extra-axial fluid collection, or mass effect. Fourth ventricle midline without hydrocephalus. Koehler-white matter differentiation preserved. Bony calvarium intact. Visualized paranasal sinuses and mastoid air cells are pneumatized and clear. Impression: Stable negative CT head without contrast exam. CTDI 67.60
[2016-09-06 16:55] LABS: BASOPHIL % 0.1 % (0.0-0.4); Eosinophil % 2.8 % (0.00-5.0); Granulocytes % 74.8 % (36.0-66.0); Lymphocytes % 18.3 % (24.0-44.0); Mean Cell Volume 93.1 fl (78-100); Mean Corpuscular Hemoglobin 30.3 pg (26-32); Mean Platelet Volume 10.8 fl (6-9.5); Platelet Count 228 K/mm3 (150-450); Red Blood Count 4.66 M/mm3 (4.1-5.4); Red Cell Distribution Width 13.2 % (11.5-14.0); White Blood Count 7.2 K/mm3 (4.0-10.5)
[2016-09-06 16:58] LABS: INR 0.96 (0.8-3.0); PROTIME 10.8 SECONDS (9.95-12.35)
[2016-09-06 17:06] LABS: ALBUMIN 3.8 g/dL (3.4-5.0); ANION GAP 12.5 MEQ/L (5-15); BILIRUBIN,TOTAL 0.4 mg/dL (0.2-1.0); Carbon Dioxide 29.6 mEq/L (21-32); Potassium 4.4 mEq/L (3.5-5.1); Total Protein 7.6 gm/dL (6.4-8.2)
[2016-09-06] MEDS ORDERED: Phenergan 25 MG INJ IM ONE (18:06)
[2016-09-06] MEDS ORDERED: Phenergan 25 MG INJ ONE (18:20)
[2016-09-06] MEDS ORDERED: Sodium Chloride 0.9% 1000 ML 1,000 ML ONE (19:39)
[2016-09-06] MEDS ORDERED: SUBLIMAZE 100 MCG/2 ML IV ONE (19:42)
[2016-09-06] MEDS ORDERED: Sodium Chloride 0.9% 1000 ML 1,000 ML IV SCH (19:45)
[2016-09-06] MEDS ORDERED: Reglan 10 MG/2 ML IV ONE (19:47)
[2016-09-06] MEDS ORDERED: PLAVIX 75 MG Tablet PO ONE (19:48)
[2016-09-06] MEDS ORDERED: SUBLIMAZE 100 MCG/2 ML ONE (19:50)
[2016-09-06] MEDS ORDERED: PLAVIX 75 MG Tablet ONE (19:53)
[2016-09-06] MEDS ORDERED: Reglan 10 MG/2 ML ONE (19:53)
[2016-09-06 20:03] LABS: COMPLETE URINE MICROSCOPIC? NO; Collection Type CATH; Ph 8.5 (5-6)
[2016-09-06] MEDS ORDERED: ZOCOR 20MG PO SCH (22:00)
[2016-09-06] MEDS ORDERED: PHENERGAN 25 MG PO PRN (22:13)
--- NOTE | 2016-09-06 22:23 | PCM.HP ---
History of Present Illness - Chief Complaint Chief Complaint: R sided weakness, chest pain Date: 09/06/16 History of Present Illness: is a 51 year old female. who apparently had an episode of right side weakness that she said wasn't this bad and had full stroke work up at [facility] in [facility] within the last week. She states at 13:30 today she stopped being able to use her right arm and leg. She has been having chest pains for 2 days also substernal. She states she has been nauseated and feels like her head is in a vice as well for 2 days. She is requesting something for the pain in her chest and when asked about all her allergies she states "they gave me something that started with a D in [facility] that worked". She stats she doesn't take anything for pain at home anymore because she is afraid she would get addicted. However review of her Inspect shows Oxycodone 10 mg #100 being filled by [facility] on 08/04/2016. she had percocet 5/325 from a different provider the previous month despite her getting tapering doses from the pain mgmt physicians it appears and inspect with multiple physicians on it - Review of Systems Constitutional: Fatigue, Lethargy, No Fever, No Chills Eyes: No Discharge, No Eye Pain Respiratory: Short Of Breath, No Cough Cardiac: Chest Pain, No Edema Abdominal/Gastrointestinal: Abdominal Pain, Nausea, Vomiting, No Constipation Genitourinary Symptoms: No Dysuria, No Frequency, No Hematuria Musculoskeletal: Arthralgias, Back Pain, Joint Pain Skin: No Cellulitis, No Rash Neurological: Dizziness, Focal Weakness, Gait Changes, Headache, Irritability, Lethargy, Parasthesia, Sensory Changes, Speech Changes Psychological: Anxiety, Depression, No Alcohol Abuse Medications & Allergies Home Medications: Home Medication List Carvedilol 12.5 mg [Coreg 12.5 mg] 12.5 mg PO BID 09/28/15 [History Confirmed 09/06/16] Levothyroxine Sodium 75 Mcg [Synthroid 75 Mcg] 100 mcg PO DAILY 09/28/15 [ History Confirmed 09/06/16] Methylphenidate 5 mg [Ritalin 5 MG] 20 mg PO TID 12/09/15 [History Confirmed 09/06/16] Alprazolam [Xanax Xr] 2 mg PO BID 05/07/16 [History Confirmed 09/06/16] Amitriptyline HCl [Elavil] 100 mg PO HS 09/06/16 [History Confirmed 09/06/16] Simvastatin [Zocor] 20 mg PO HS 09/06/16 [History Confirmed 09/06/16] Allergies/Adverse Reactions: Allergies Allergy/AdvReac Type Severity Reaction Status Date / Time codeine Allergy Mild Verified 09/06/16 16:09 aripiprazole [From Abilify] Allergy Verified 09/06/16 16:09 aspirin Allergy Verified 09/06/16 16:09 ibuprofen Allergy Verified 09/06/16 16:09 ketorolac tromethamine Allergy Verified 09/06/16 16:09 [From Toradol] quetiapine fumarate Allergy Verified 09/06/16 16:09 [From Seroquel] tramadol Allergy Verified 09/06/16 16:09 acetaminophen [From Vicodin] AdvReac VOMITED Verified 09/06/16 16:09 hydrocodone bitartrate AdvReac VOMITED Verified 09/06/16 16:09 [From Vicodin] - Past Medical History Past Medical History: Yes Neurological History: Migraines, TIA ENT History: No Pertinent History Cardiac History: Hypertension Respiratory History: No Pertinent History Endocrine Medical History: Hypothyroidism Musculoskelatal History: Arthritis, Degenerative Disk Disease, Fibromyalgia GI Medical History: No Pertinent History History: No Pertinent History Pyscho-Social History: Anxiety, Attention Deficit Disorder, Depression Reproductive Disorders: No Pertinent History Comment: Chronic Fatigue Syndrome, Herniated discs, Raynaud's. POLYCYSTIC KIDNEY DISEASE - Past Surgical History Past Surgical History: Yes Neuro Surgical History: No Pertinent History Cardiac History: No Pertinent History Respiratory Surgery: No Pertinent History GI Surgical History: Cholecystectomy Genitourinary Surgical Hx: No Pertinent History Musculskeletal Surgical Hx: Other Female Surgical History: Section, Tubal Ligation Other Surgical History: neck fusion. carpal tunnel. raynauds surgery - Social History Smoking Status: Never smoker Exposure to second hand smoke: No Alcohol: None Drug Use: none Significant Family History: hypertension - Physical Exam Vital Signs: Vital Signs - 24 hr Temp Pulse Resp BP Pulse Ox 09/06/16 21:06 98.6 F 91 H 18 131/68 98 09/06/16 20:17 103 H 16 133/85 97 09/06/16 19:50 89 18 157/92 98 09/06/16 19:03 100 H 16 169/93 97 09/06/16 18:43 96 H 16 165/90 97 09/06/16 16:50 96 H 16 151/86 98 09/06/16 16:46 96 09/06/16 16:03 98.4 F 97 H 24 143/90 97 General Appearance: no apparent distress, alert, obese Neurologic Exam: alert, oriented x 3, other (flat affect her right arm she moves all fingers with decent fine motor she catches her right arm on dropping it her right leg applies strong pressure when lifting the left leg she moves her toes on the right and lifts right leg against gravity no facial droop. pupils dilated equal round and reactive bilateral CN intact bilateral. she is able to differentiate touch on right and left foot.), No facial droop, No slurred speech Eye Exam: PERRL/EOMI, eyes nml inspection Ears, Nose, Throat Exam: normal ENT inspection, TMs normal, pharynx normal, moist mucous membranes Neck Exam: normal inspection, non-tender, supple, full range of motion Respiratory Exam: normal breath sounds, lungs clear, No respiratory distress Cardiovascular Exam: regular rate/rhythm, normal heart sounds, normal peripheral pulses Gastrointestinal/Abdomen Exam: soft, normal bowel sounds, No tenderness, No mass Back Exam: normal inspection, normal range of motion, No CVA tenderness, No vertebral tenderness Extremity Exam: normal inspection, normal range of motion, pelvis stable Skin Exam: normal color, warm, dry, No rash Lymphatic Exam: No adenopathy Assessment/Plan (1) Chest pain Current Visit: Yes Status: Acute Assessment & Plan: chest pain rule out ID the right sided weakness just had full work up for stroke negative in [facility]. Tele Neuro consulted stated no additional imaging and possible complicated migraine but by my exam appears conversion vs malingering disorder. She has severe anxiety and stress it appears we will consult [facility] in am for consult There is also some concern for drug seeking behavior she states she takes no pain medicine at home but has a very long complicated Inspect and last filled # 100 oxycodone 10mg one month ago and prior to that filled percocet from a different provider but when asked today if she could take percocet she stated she was not sure what it was and requested the medicine through the IV she got in [facility] that started with a D. Strong concern for psychological illness currently rule out organic etiology trend troponins with the chest pain substernal and the chronic opiate depedence on review of inspect will try low dose percocet 5/325 currently for the pain swallow eval in am Code(s): R07.9 - CHEST PAIN, UNSPECIFIED (2) Headache Current Visit: Yes Status: Acute Code(s): R51 - HEADACHE (3) Polypharmacy Current Visit: Yes Status: Chronic Assessment & Plan: she takes stimulants benzos and opiates on her inspect Code(s): Z79.899 - OTHER ALF (CURRENT) DRUG THERAPY (4) Depression Current Visit: Yes Status: Acute Code(s): F32.9 - MAJOR DEPRESSIVE DISORDER , SINGLE EPISODE, UNSPECIFIED
[2016-09-06] MEDS: PERCOCET TABLET 5/325MG PO PRN (22:29)
[2016-09-06] MEDS: COREG 12.5 MG PO SCH (22:46)
[2016-09-07] MEDS: XANAX 1 MG PO SCH ×3 (00:23→12:36)
[2016-09-07] MEDS ORDERED: PHENERGAN 25 MG PO PRN (07:11)
--- NOTE | 2016-09-07 08:49 | XRAY ---
Indication: Right-sided weakness. Comparison: July 21, 2016. Portable apical lordotic chest again demonstrates normal heart and lungs. Bony thorax intact again with lower cervical fusion surgery. No new/acute findings.
[2016-09-07] MEDS: PERCOCET TABLET 5/325MG PO PRN (09:11)
[2016-09-07] MEDS: COREG 12.5 MG PO SCH (09:11)
[2016-09-07] MEDS ORDERED: SYNTHROID 75 MCG PO SCH ×2 (10:00)
[2016-09-07] MEDS ORDERED: SYNTHROID 100 MCG PO SCH (10:00)
--- NOTE | 2016-09-07 15:47 | PCM.DCORD ---
- Discharge Discharge Date: 09/07/16 Disposition: Home, Self-Care Condition: Fair Prescriptions: Continue Levothyroxine Sodium 75 Mcg [Synthroid 75 Mcg] 100 mcg PO DAILY Carvedilol 12.5 mg [Coreg 12.5 mg] 12.5 mg PO BID Methylphenidate 5 mg [Ritalin 5 MG] 20 mg PO TID Alprazolam [Xanax Xr] 2 mg PO BID Simvastatin [Zocor] 20 mg PO HS Amitriptyline HCl [Elavil] 100 mg PO HS Instructions: Chest Pain Follow up with: ELLIOTT DOBBS [Primary Care Provider] - 1 Week
[2016-09-07 16:28] VITALS: BP 125/62; PULSE 87; O2SAT 96
--- NOTE | 2016-09-09 19:20 | PCM.DS ---
Discharge Summary Date of Admission: 09/06/16 20:42 Date of Discharge: 09/07/16 Admitting Physician: ANNIA POND Primary Care Provider: ELLIOTT DOBBS Allergies Allergies codeine Allergy (Mild, Verified 09/06/16 16:09) aripiprazole [From Abilify] Allergy (Verified 09/06/16 16:09) aspirin Allergy (Verified 09/06/16 16:09) ibuprofen Allergy (Verified 09/06/16 16:09) ketorolac tromethamine [From Toradol] Allergy (Verified 09/06/16 16:09) quetiapine fumarate [From Seroquel] Allergy (Verified 09/06/16 16:09) tramadol Allergy (Verified 09/06/16 16:09) acetaminophen [From Vicodin] Adverse Reaction (Verified 09/06/16 16:09) VOMITED hydrocodone bitartrate [From Vicodin] Adverse Reaction (Verified 09/06/16 16:09) VOMITED Hospital Summary - Hospital Course Hospital Course: Ms. Chamberlain presented to the ED complaining of chest pain and inability to move her right side. She had tele neuro consult who felt it was nonorganic vs complicated migraine and recommended no further imaging. She was just ruled out for stroke the previous weak in [facility]. She had conflicting findings on the exam. Her chest pain was ruled out with serial troponins. She had frequent drug seeking behavior throughout stay wanting IV Dilaudid only stating she was unable to swallow as reason to not take pills. She claimed she did not take narcotics at home despite a long and extensive INSPECT report from multiple providers. [facility] did evaluation via tele mental health and recommended she go to inpatient treatment; however she did not pose a threat to herself or others and thus it would be voluntary. After the consult she stated she was doing better and she spontaneously regained all function of her right arm and leg and was ready to be discharged and was discharged to home to follow up as an outpatient. The dangers of narcotic use from multiple providers was discussed with the patient. - Vitals & Intake/Output Vital Signs: Vital Signs Temperature 98.6 F 09/07/16 15:32 Pulse Rate 87 09/07/16 15:32 Respiratory Rate 17 09/07/16 15:32 Blood Pressure 125/62 09/07/16 15:32 O2 Sat by Pulse Oximetry 96 09/07/16 15:32 Oxygen-Last Documented O2 Percentage 4 Liters = 36% Intake & Output: Intake & Output 09/07/16 09/08/16 09/09/16 09/10/16 11:59 11:59 11:59 11:59 Intake Total 840 Output Total 400 Balance 840 -400 Weight 93.984 kg - Lab Result Diagrams: 09/06/16 16:40 09/06/16 16:40 - Procedures and Test Procedures and Tests throughout Hospitalization: Therapy Orders & Screens 09/06/16 21:30 OT Screen per Nursing Assess ONCE Comment: Protocol Order Physician Instructions: Greater than 3 points order OT Admission Screening Reason For Exam: Triggered on Admission Diagnosis: R sided weakness, chest pain Open Wound/Cellutlitis/Pressure Ulcers: No Acute Fx/ORIF/Change in wt bearing status: No Severe MUSCULOSKELETAL pain: Yes ADL Dysfunction: No Decreased Functional Mobility/Strength: Yes Sprain/Strain: No Acute Post-op Mobility Dysfunction: No Total Points: 6 PT Screen per Nursing Assess ONCE Comment: Protocol Order Physician Instructions: Greater than 3 points order PT Admission Screenin Reason For Exam: Triggered on Admission Diagnosis: R sided weakness, chest pain Open Wound/Cellutlitis/Pressure Ulcers: No Acute Fx/ORIF/Change in wt bearing status: No Severe MUSCULOSKELETAL pain: Yes ADL Dysfunction: No Decreased Functional Mobility/Strength: Yes Sprain/Strain: No Acute Post-op Mobility Dysfunction: No Total Points: 6 09/07/16 13:38 Speech Therapy Eval & Treat [ST Eval & Treat ( Order)] .as ordered Comment: Physician Instructions: Reason For Exam: Evaluate: Yes Treat: Yes Reason for Eval: patient states she ahs trouble swallowing Diagnosis: R sided weakness, chest pain Discharge Exam General Appearance: no apparent distress Neurologic Exam: alert, oriented x 3, motor weakness (she has waxing and waning weakness in the right arm and leg poor effort it appears equal reflexes toes downgoing), No bench examiner II-XII nml as tested, No facial droop, No dysarthria Skin Exam: warm, dry Eye Exam: No scleral icterus Ears, Nose, Throat Exam: moist mucous membranes Neck Exam: non-tender, supple Respiratory Exam: normal breath sounds, lungs clear Cardiovascular Exam: regular rate/rhythm, normal heart sounds, normal peripheral pulses Gastrointestinal/Abdomen Exam: soft, normal bowel sounds, No tenderness, No distention Extremity Exam: normal inspection, No calf tenderness Back Exam: normal inspection, No rash Final Diagnosis/Problem List - Final Discharge Diagnosis/Problem (1) Drug-seeking behavior Status: Acute (2) Chest pain Status: Acute (3) Headache Status: Acute (4) Polypharmacy Status: Chronic (5) Depression Status: Acute (6) Right sided weakness Status: Resolved Assessment & Plan: this is presumed to be due to conversion disorder vs malingering. resolved at time of discharge - Discharge Discharge Date: 09/07/16 Disposition: Home, Self-Care Condition: Fair Prescriptions: Continue Levothyroxine Sodium 75 Mcg [Synthroid 75 Mcg] 100 mcg PO DAILY Carvedilol 12.5 mg [Coreg 12.5 mg] 12.5 mg PO BID Methylphenidate 5 mg [Ritalin 5 MG] 20 mg PO TID Alprazolam [Xanax Xr] 2 mg PO BID Simvastatin [Zocor] 20 mg PO HS Amitriptyline HCl [Elavil] 100 mg PO HS Instructions: Depression -- Adult, Anxiety -- Adult Follow up with: ELLIOTT DOBBS [Primary Care Provider] - 1 Week Forms: Discharge Instructions
== END 2016-09-07 17:50 | disposition home or self-care (01) ==
LOC: ED 15:54 → MED SURG 20:42
PROVIDERS: ADMIT Family Medicine; ATTEND Family Medicine
DX: Z76.5 Malingerer [conscious simulation] (principal); R07.9 Chest pain, unspecified; R51 Headache; F32.9 Major depressive disorder, single episode, unspecified; I10 Essential (primary) hypertension; R53.1 Weakness; F41.9 Anxiety disorder, unspecified; E03.9 Hypothyroidism, unspecified; M19.90 Unspecified osteoarthritis, unspecified site; M79.7 Fibromyalgia; Z79.899 Other long term (current) drug therapy; Z86.73 Personal history of transient ischemic attack (TIA), and cerebral infarction without residual deficits
CPT/HCPCS: 36000; 36415; 70450; 71010; 80053; 80307; 80320; 81002; 83986; 84484; 85025; 85610; 85730; 90791; 93005; 93041; 93268; 96360; 96372; 96374; 96375; 99285; 99291; G0378; J2550; J3010; Q3014; A9270-GY

== ENCOUNTER 2016-10-09 18:57 | Observation (INO) | payer MEDICAID ==
[2016-10-09] MEDS ORDERED: Zofran 4 MG/2 ML VIAL IV ONE (19:32)
[2016-10-09] MEDS ORDERED: MORPHINE SULFATE 4 MG INJ IV ONE (19:32)
[2016-10-09] MEDS ORDERED: Sodium Chloride 0.9% 1000 ML 1,000 ML IV STA (19:32)
--- NOTE | 2016-10-09 19:32 | ERPHSYRPT ---
- History of Present Illness Time Seen by Provider: 10/09/16 19:27 Historian: patient Exam Limitations: no limitations Patient Subjective Stated Complaint: pt c/o pain in her rt kidney. points to rlq and states it shotts thru to her back. states she had blood in her urine this mornigng and hasnt been able to void since then Triage Nursing Assessment: pt alert and oriented, answers questions approp. respirations nonlabored with lungs cta. abd soft with some tenderness in rt lower quad. bowel sounds present in all 4 quads. pt unable to urinate, no urine assessed at this time. Physician History: The patient is a 51-year-old female brought in by ambulance from [facility] where she complains that she's had abdominal pain for one month that is located in the right upper quadrant and radiates through to her back. Pt has "blacked out" several times for one month and also today, maybe from the pain. The pain worsened this morning at 6 AM. She did not seek medical attention until 7 PM. She says the pain is sharp. She is nauseated. She also states that she urinated blood this morning and has not urinated for 12 hours. She is nauseated but has not vomited. Her past medical history is significant for probably cystic kidney disease, renal failure, congestive heart failure, hypothyroidism, and chronic pain.Her past surgical history involves cholecystectomy and tubal ligation. Timing/Duration: week(s) (4) Activities at Onset: none Quality: stabbing Abdominal Pain Onset Location: RUQ Pain Radiation: back Severity of Pain-Max: moderate Severity of Pain-Current: moderate Modifying Factors: Improves With: nothing Associated Symptoms: nausea Previous symptoms: same symptoms as today Allergies/Adverse Reactions: codeine Allergy (Mild, Verified 10/09/16 19:10) aripiprazole [From Abilify] Allergy (Verified 10/09/16 19:10) aspirin Allergy (Verified 10/09/16 19:10) ibuprofen Allergy (Verified 10/09/16 19:10) ketorolac tromethamine [From Toradol] Allergy (Verified 10/09/16 19:10) quetiapine fumarate [From Seroquel] Allergy (Verified 10/09/16 19:10) tramadol Allergy (Verified 10/09/16 19:10) acetaminophen [From Vicodin] Adverse Reaction (Verified 10/09/16 19:10) VOMITED hydrocodone bitartrate [From Vicodin] Adverse Reaction (Verified 10/09/16 19:10) VOMITED Home Medications: Carvedilol 12.5 mg [Coreg 12.5 mg] 12.5 mg PO BID 09/28/15 [History] Levothyroxine Sodium 75 Mcg [Synthroid 75 Mcg] 100 mcg PO DAILY 09/28/15 [ History] Methylphenidate 5 mg [Ritalin 5 MG] 20 mg PO TID 12/09/15 [History] Alprazolam [Xanax Xr] 2 mg PO BID 05/07/16 [History] Amitriptyline HCl [Elavil] 100 mg PO HS 09/06/16 [History] Simvastatin [Zocor] 20 mg PO HS 09/06/16 [History] Hx Tetanus, Diphtheria Vaccination/Date Given: Yes Hx Influenza Vaccination/Date Given: Yes Hx Pneumococcal Vaccination/Date Given: No Immunizations Up to Date: Yes - Review of Systems Constitutional: Fever Eyes: No Symptoms Ears, Nose, & Throat: No Symptoms Respiratory: No Cough, No Dyspnea Cardiac: No Chest Pain, No Edema, No Syncope Abdominal/Gastrointestinal: Abdominal Pain, Nausea Genitourinary Symptoms: Hematuria, Urinary Retention, No Dysuria Musculoskeletal: No Back Pain, No Neck Pain Skin: No Rash Neurological: No Dizziness, No Focal Weakness, No Sensory Changes Psychological: No Symptoms Endocrine: No Symptoms Hematologic/Lymphatic: No Symptoms Immunological/Allergic: No Symptoms All Other Systems: Reviewed and Negative - Past Medical History Pertinent Past Medical History: Yes Neurological History: Migraines, TIA ENT History: No Pertinent History Cardiac History: Hypertension Respiratory History: No Pertinent History Endocrine Medical History: Hypothyroidism Musculoskeletal History: Arthritis, Degenerative Disk Disease, Fibromyalgia GI Medical History: No Pertinent History History: Other Psycho-Social History: Anxiety, Attention Deficit Disorder, Depression Female Reproductive Disorders: No Pertinent History Other Medical History: Chronic Fatigue Syndrome, Herniated discs, Raynaud's. POLYCYSTIC KIDNEY DISEASE - Past Surgical History Past Surgical History: Yes Neuro Surgical History: No Pertinent History Cardiac: No Pertinent History Respiratory: No Pertinent History Gastrointestinal: Cholecystectomy Genitourinary: No Pertinent History Musculoskeletal: Other Female Surgical History: Section, Tubal Ligation Other Surgical History: neck fusion. carpal tunnel. raynauds surgery - Social History Smoking Status: Never smoker Exposure to second hand smoke: No Alcohol Use: None Drug Use: none Patient Lives Alone: No Significant Family History: hypertension - Female History Hx Last Menstrual Period: post Hx Now: No - Nursing Vital Signs Nursing Vital Signs: Initial Vital Signs Temperature 98.0 F Temperature Source Oral Pulse Rate 114 Respiratory Rate 20 Blood Pressure [] 114/60 Pain Intensity 8 - Physical Exam General Appearance: no apparent distress Eye Exam: PERRL/EOMI, eyes nml inspection Ears, Nose, Throat Exam: normal ENT inspection, pharynx normal, moist mucous membranes Neck Exam: normal inspection, non-tender, supple, full range of motion Respiratory Exam: normal breath sounds, lungs clear, No respiratory distress Cardiovascular Exam: regular rate/rhythm, normal heart sounds Gastrointestinal/Abdomen Exam: soft, tenderness, No mass Pelvic Exam: not done Rectal Exam: not done Back Exam: normal inspection, normal range of motion, No CVA tenderness, No vertebral tenderness Extremity Exam: normal inspection, normal range of motion, pelvis stable Neurologic Exam: alert, oriented x 3, cooperative, normal mood/affect, nml cerebellar function, sensation nml, No motor deficits Skin Exam: normal color, warm, dry SpO2 Interpretation: normal SpO2: 98 Oxygen Delivery: Room Air - Course EKG Interpreted by Me: RATE, Sinus Rhythm, Left Mcallen Deviation, NORMAL INTERVALS , NORMAL QRS, NORMAL ST-T, Other (no change comp EKG 09/06/16) - CT Exams Abdomen CT Interpretation: Negative, Tele-radiologist Report (No new acute findings per Dr Millard.) Ordered Tests: Active Orders 24 hr Category Date Time Status Cath for Specimen-Straight STAT Care 10/09/16 19:32 Active EKG-ER Only STAT Care 10/09/16 19:32 Active IV Insertion STAT Care 10/09/16 19:32 Active ABDOMEN AND PELVIS W/0 CONTRAS [CT] Stat Exams 10/09/16 19:32 Taken CBC W DIFF Stat Lab 10/09/16 20:09 Completed CMP Stat Lab 10/09/16 20:09 Completed HCG QUALITATIVE,SERUM Stat Lab 10/09/16 20:09 Completed LIPASE Stat Lab 10/09/16 20:09 Completed Lactic Acid Stat Lab 10/09/16 20:27 Completed TROPONIN Stat Lab 10/09/16 20:09 Completed UA Stat Lab 10/09/16 20:09 Completed Urine Triage Profile Stat Lab 10/09/16 20:09 Completed Medication Summary Discontinued Medications Generic Name Dose Route Start Last Admin Trade Name Radha PRN Reason Stop Dose Admin Sodium Chloride 1,000 mls @ 999 mls/hr 10/09/16 19:32 10/09/16 19:49 Sodium Chloride 0.9% 1000 Ml IV 10/09/16 20:32 999 mls/hr .Q1H1M STA Administration Sodium Chloride Confirm 10/09/16 19:47 Sodium Chloride 0.9% 1000 Ml Administered 10/09/16 19:48 Dose 1,000 mls @ ud .ROUTE .STK-MED ONE Morphine Sulfate 4 mg 10/09/16 19:32 10/09/16 19:49 Morphine Sulfate 4 Mg Inj IV 10/09/16 19:33 4 mg STAT ONE Administration Morphine Sulfate Confirm 10/09/16 19:47 Morphine Sulfate 4 Mg Inj Administered 10/09/16 19:48 Dose 4 mg .ROUTE .STK-MED ONE Ondansetron HCl 4 mg 10/09/16 19:32 10/09/16 19:49 Zofran 4 Mg/2 Ml Vial IV 10/09/16 19:33 4 mg STAT ONE Administration Ondansetron HCl Confirm 10/09/16 19:46 Zofran 4 Mg/2 Ml Vial Administered 10/09/16 19:47 Dose 4 mg .ROUTE .STK-MED ONE Lab/Rad Data: Laboratory Result Diagrams 10/09/16 20:09 10/09/16 20:09 Laboratory Results 10/09/16 10/09/16 10/09/16 Range/Units 20:27 20:09 20:09 WBC (4.0-10.5) K/mm3 RBC (4.1-5.4) M/mm3 Hgb (12.0-16.0) gm/dl Hct (35-47) % MCV (78-100) fl MCH (26-32) pg MCHC (32-36) g/dl RDW (11.5-14.0) % Plt Count (150-450) K/mm3 MPV (6-9.5) fl Gran % (36.0-66.0) % Lymphocytes % (24.0-44.0) % Monocytes % (0.0-12.0) % Eosinophils % (0.00-5.0) % Basophils % (0.0-0.4) % Basophils # (0-0.4) Sodium 144 (136-145) mEq/L Potassium 3.8 (3.5-5.1) mEq/L Chloride 107 (98-107) mEq/L Carbon Dioxide 27.2 (21-32) mEq/L Anion Gap 13.7 (5-15) MEQ/L BUN 17 (9-20) mg/dL Creatinine 1.27 (0.55-1.30) mg/dl Estimated GFR 47 ML/MIN Glucose 94 (70-110) MG/DL Lactic Acid 1.1 Calcium 9.7 (8.5-10.1) mg/dL Total Bilirubin 0.7 (0.2-1.0) mg/dL AST 14 L (15-37) U/L ALT 13 (12-78) U/L Alkaline Phosphatase 57 (46-116) U/L Troponin I < 0.017 (0.000-0.056) ng/ml Serum Total Protein 7.8 (6.4-8.2) gm/dL Albumin 4.0 (3.4-5.0) g/dL Lipase 150 (73-393) U/L Serum , Qual NEGATIVE (Negative) Ur Collection Type Urine Color (YELLOW) Urine Appearance (CLEAR) Urine pH (5-6) Ur Specific [place] (1.005-1.025) Urine Protein (Negative) Urine Glucose (UA) (NEGATIVE) mg/dL Urine Ketones (NEGATIVE) Urine Nitrite (NEGATIVE) Urine Bilirubin (NEGATIVE) Urine Urobilinogen (0-1) mg/dL Urine WBC (Auto) (NEGATIVE) Urine RBC (Auto) (0-5) [place]/ul Urine Opiates Level (NEGATIVE) Ur Methadone (NEGATIVE) Urine Barbiturates (NEGATIVE) Ur Phencyclidine (PCP) (NEGATIVE) Urine Amphetamine (NEGATIVE) U Benzodiazepine Level (NEGATIVE) Urine Cocaine (NEGATIVE) Urine Marijuana (THC) (NEGATIVE) Specimen Received 10/09/16 10/09/16 10/09/16 Range/Units 20:09 20:09 20:09 WBC 7.5 (4.0-10.5) K/mm3 RBC 4.66 (4.1-5.4) M/mm3 Hgb 14.3 (12.0-16.0) gm/dl Hct 44.0 (35-47) % MCV 94.4 (78-100) fl MCH 30.7 (26-32) pg MCHC 32.5 (32-36) g/dl RDW 13.8 (11.5-14.0) % Plt Count 249 (150-450) K/mm3 MPV 10.4 H (6-9.5) fl Gran % 61.9 (36.0-66.0) % Lymphocytes % 26.3 (24.0-44.0) % Monocytes % 7.4 (0.0-12.0) % Eosinophils % 4.0 (0.00-5.0) % Basophils % 0.4 (0.0-0.4) % Basophils # 0.03 (0-0.4) Sodium (136-145) mEq/L Potassium (3.5-5.1) mEq/L Chloride (98-107) mEq/L Carbon Dioxide (21-32) mEq/L Anion Gap (5-15) MEQ/L BUN (9-20) mg/dL Creatinine (0.55-1.30) mg/dl Estimated GFR ML/MIN Glucose (70-110) MG/DL Lactic Acid Calcium (8.5-10.1) mg/dL Total Bilirubin (0.2-1.0) mg/dL AST (15-37) U/L ALT (12-78) U/L Alkaline Phosphatase (46-116) U/L Troponin I (0.000-0.056) ng/ml Serum Total Protein (6.4-8.2) gm/dL Albumin (3.4-5.0) g/dL Lipase (73-393) U/L Serum , Qual (Negative) Ur Collection Type CATH Urine Color YELLOW (YELLOW) Urine Appearance CLEAR (CLEAR) Urine pH 6.0 (5-6) Ur Specific [place] 1.025 (1.005-1.025) Urine Protein NEGATIVE (Negative) Urine Glucose (UA) NEGATIVE (NEGATIVE) mg/dL Urine Ketones TRACE (NEGATIVE) Urine Nitrite NEGATIVE (NEGATIVE) Urine Bilirubin NEGATIVE (NEGATIVE) Urine Urobilinogen 0.2 (0-1) mg/dL Urine WBC (Auto) NEGATIVE (NEGATIVE) Urine RBC (Auto) NEGATIVE (0-5) [place]/ul Urine Opiates Level NEG. (NEGATIVE) Ur Methadone NEG. (NEGATIVE) Urine Barbiturates NEG. (NEGATIVE) Ur Phencyclidine (PCP) NEG. (NEGATIVE) Urine Amphetamine NEG. (NEGATIVE) U Benzodiazepine Level NEG. (NEGATIVE) Urine Cocaine NEG. (NEGATIVE) Urine Marijuana (THC) NEG. (NEGATIVE) Specimen Received 10/09/16199910/09/16 Range/Units 20:05 WBC (4.0-10.5) K/mm3 RBC (4.1-5.4) M/mm3 Hgb (12.0-16.0) gm/dl Hct (35-47) % MCV (78-100) fl MCH (26-32) pg MCHC (32-36) g/dl RDW (11.5-14.0) % Plt Count (150-450) K/mm3 MPV (6-9.5) fl Gran % (36.0-66.0) % Lymphocytes % (24.0-44.0) % Monocytes % (0.0-12.0) % Eosinophils % (0.00-5.0) % Basophils % (0.0-0.4) % Basophils # (0-0.4) Sodium (136-145) mEq/L Potassium (3.5-5.1) mEq/L Chloride (98-107) mEq/L Carbon Dioxide (21-32) mEq/L Anion Gap (5-15) MEQ/L BUN (9-20) mg/dL Creatinine (0.55-1.30) mg/dl Estimated GFR ML/MIN Glucose (70-110) MG/DL Lactic Acid Cancelled Calcium (8.5-10.1) mg/dL Total Bilirubin (0.2-1.0) mg/dL AST (15-37) U/L ALT (12-78) U/L Alkaline Phosphatase (46-116) U/L Troponin I (0.000-0.056) ng/ml Serum Total Protein (6.4-8.2) gm/dL Albumin (3.4-5.0) g/dL Lipase (73-393) U/L Serum , Qual (Negative) Ur Collection Type Urine Color (YELLOW) Urine Appearance (CLEAR) Urine pH (5-6) Ur Specific [place] (1.005-1.025) Urine Protein (Negative) Urine Glucose (UA) (NEGATIVE) mg/dL Urine Ketones (NEGATIVE) Urine Nitrite (NEGATIVE) Urine Bilirubin (NEGATIVE) Urine Urobilinogen (0-1) mg/dL Urine WBC (Auto) (NEGATIVE) Urine RBC (Auto) (0-5) [place]/ul Urine Opiates Level (NEGATIVE) Ur Methadone (NEGATIVE) Urine Barbiturates (NEGATIVE) Ur Phencyclidine (PCP) (NEGATIVE) Urine Amphetamine (NEGATIVE) U Benzodiazepine Level (NEGATIVE) Urine Cocaine (NEGATIVE) Urine Marijuana (THC) (NEGATIVE) Specimen Received - Progress Progress: improved Discussed with : Robb Will see patient in: hospital (observation) Counseled pt/family regarding: lab results, diagnosis, rad results - Departure Time of Disposition: 23:51 Departure Disposition: Observation Clinical Impression: Abdominal pain Condition: Stable Critical Care Time: No Referrals: ELLIOTT DOBBS [Primary Care Provider] -
[2016-10-09] MEDS ORDERED: Zofran 4 MG/2 ML VIAL ONE (19:46)
[2016-10-09] MEDS ORDERED: Sodium Chloride 0.9% 1000 ML 1,000 ML ONE (19:47)
[2016-10-09] MEDS ORDERED: MORPHINE SULFATE 4 MG INJ ONE (19:47)
[2016-10-09 20:33] LABS: COMPLETE URINE MICROSCOPIC? NO; Collection Type CATH
[2016-10-09 20:38] LABS: BASOPHIL % 0.4 % (0.0-0.4); Granulocytes % 61.9 % (36.0-66.0); Lymphocytes % 26.3 % (24.0-44.0); Mean Cell Volume 94.4 fl (78-100); Mean Corpuscular Hemoglobin 30.7 pg (26-32); Mean Platelet Volume 10.4 fl (6-9.5); Monocytes % 7.4 % (0.0-12.0); Platelet Count 249 K/mm3 (150-450); Red Blood Count 4.66 M/mm3 (4.1-5.4); Red Cell Distribution Width 13.8 % (11.5-14.0); White Blood Count 7.5 K/mm3 (4.0-10.5)
[2016-10-09 21:08] LABS: ALKALINE PHOSPHATASE 57 U/L (46-116); ANION GAP 13.7 MEQ/L (5-15); BILIRUBIN,TOTAL 0.7 mg/dL (0.2-1.0); CHLORIDE 107 mEq/L (98-107); Carbon Dioxide 27.2 mEq/L (21-32); Glucose 94 MG/DL (70-110); LIPASE 150 U/L (73-393); Potassium 3.8 mEq/L (3.5-5.1); SGOT/AST 14 U/L (15-37); SGPT/ALT 13 U/L (12-78); SODIUM 144 mEq/L (136-145); Total Protein 7.8 gm/dL (6.4-8.2)
[2016-10-09 21:23] LABS: BLOOD UREA NITROGEN 17 mg/dL (9-20)
[2016-10-09 21:31] LABS: TROPONIN < 0.017 ng/ml (0.000-0.056)
[2016-10-10] MEDS: MORPHINE SULFATE 2 MG INJ IV PRN ×3 (01:07→08:32)
[2016-10-10] MEDS: Sodium Chloride 0.9% 1000 ML 1,000 ML IV SCH ×3 (01:13→18:47)
[2016-10-10] MEDS: Zofran 4 MG/2 ML VIAL IV PRN ×3 (01:58→17:09)
[2016-10-10 05:37] LABS: BASOPHIL % 0.3 % (0.0-0.4); Eosinophil % 6.5 % (0.00-5.0); Granulocytes % 51.2 % (36.0-66.0); Lymphocytes % 34.1 % (24.0-44.0); Mean Cell Volume 94.9 fl (78-100); Mean Corpuscular Hemoglobin 30.6 pg (26-32); Mean Platelet Volume 10.5 fl (6-9.5); Monocytes % 7.9 % (0.0-12.0); Platelet Count 229 K/mm3 (150-450); Red Blood Count 4.28 M/mm3 (4.1-5.4); Red Cell Distribution Width 13.6 % (11.5-14.0); White Blood Count 7.4 K/mm3 (4.0-10.5)
[2016-10-10 05:48] LABS: ANION GAP 13.8 MEQ/L (5-15); Carbon Dioxide 24.9 mEq/L (21-32); Potassium 3.4 mEq/L (3.5-5.1)
[2016-10-10] MEDS ORDERED: Zofran 4 MG/2 ML VIAL ONE (07:00)
--- NOTE | 2016-10-10 09:36 | XRAY ---
Indication: Right abdominal pain and hematuria. Multiple contiguous axial images obtained through the abdomen and pelvis without contrast as ordered. Comparison: May 13, 2016. Stable benign right lower lobe subcentimeter pulmonary nodule dating back to CT chest March 01, 2014. Remaining lung bases clear. Heart is not enlarged. There are again multiple bilateral renal cysts and nonobstructing micro-calculi. No hydronephrosis, hydroureter, or perinephric fluid. [place] catheter coiled in the urinary bladder with intraluminal air bubbles. Again previous cholecystectomy. Noncontrasted stomach and bowel loops appear nonobstructed. Normal appendix. No free fluid/air. Remaining liver, pancreas, spleen, adrenal glands, kidneys, ureters, bladder, uterus, and aorta appear unremarkable for noncontrast exam. Osseous structures intact with stable degenerative changes again greatest in the lower lumbar levels. Impression: 1. [place] catheter coiled in the urinary bladder. 2. Stable bilateral renal cysts and nonobstructing micro-calculi. 3. No acute intra-abdominal/pelvic abnormalities on this noncontrast exam. CTDI 22.83
--- NOTE | 2016-10-10 10:21 | PCM.HP ---
History of Present Illness - Chief Complaint Chief Complaint: abdominal pain History of Present Illness: is a 51 year old female pt of Dr. Yao Leavitt who came to the ER with abdominal pain yesterday. She is a somewhat difficult historian and reported varied symptoms to the ER doctor. To me, she complains that at 6 am yesterday she started having stabbing 8/10 abd pain in RUQ radiating to R flank. At 8 am she urinated orange and after that felt like she had urinary retention. She vomited several times yesterday. She states that she "blacked out" on the couch at home yesterday due to the pain , thinks she was out several minutes, couldn't see or hear anything, states her did not witness this. She states she has had this abdominal pain intermittently over the past few weeks. States she has lost 70 lb without trying over the past [address] abd/pelvis without contrast here, she had nothing acute. She has not vomited here but does feel nauseated. She is asking for pain medicine and nausea medicine. I note that on her last admission, she was found to have pain seeking behaviors. - Review of Systems Constitutional: Fever (temps to 100 over the past week.), Weight Loss (70 lb) Eyes: No Symptoms Ears, Nose, & Throat: No Symptoms Respiratory: No Symptoms Cardiac: No Symptoms Abdominal/Gastrointestinal: Abdominal Pain, Nausea, Vomiting Genitourinary Symptoms: Hematuria, Urinary Retention Musculoskeletal: Other (chronic pain) Skin: No Symptoms Neurological: Other (syncope) Psychological: Anxiety Hematologic/Lymphatic: No Anemia Medications & Allergies Home Medications: Home Medication List Carvedilol 12.5 mg [Coreg 12.5 mg] 12.5 mg PO BID 09/28/15 [History Confirmed 10/09/16] Levothyroxine Sodium 75 Mcg [Synthroid 75 Mcg] 100 mcg PO DAILY 09/28/15 [ History Confirmed 10/09/16] Methylphenidate 5 mg [Ritalin 5 MG] 20 mg PO TID 12/09/15 [History Confirmed 10/09/16] Alprazolam [Xanax Xr] 2 mg PO BID 05/07/16 [History Confirmed 10/09/16] Amitriptyline HCl [Elavil] 100 mg PO HS 09/06/16 [History Confirmed 10/09/16] Simvastatin [Zocor] 20 mg PO HS 09/06/16 [History Confirmed 10/09/16] Allergies/Adverse Reactions: Allergies Allergy/AdvReac Type Severity Reaction Status Date / Time codeine Allergy Mild Verified 10/09/16 19:10 aripiprazole [From Abilify] Allergy Verified 10/09/16 19:10 aspirin Allergy Verified 10/09/16 19:10 ibuprofen Allergy Verified 10/09/16 19:10 ketorolac tromethamine Allergy Verified 10/09/16 19:10 [From Toradol] quetiapine fumarate Allergy Verified 10/09/16 19:10 [From Seroquel] tramadol Allergy Verified 10/09/16 19:10 acetaminophen [From Vicodin] AdvReac VOMITED Verified 10/09/16 19:10 hydrocodone bitartrate AdvReac VOMITED Verified 10/09/16 19:10 [From Vicodin] - Past Medical History Past Medical History: Yes Neurological History: Migraines, TIA ENT History: No Pertinent History Cardiac History: Hypertension Respiratory History: No Pertinent History Endocrine Medical History: Hypothyroidism Musculoskelatal History: Arthritis, Degenerative Disk Disease, Fibromyalgia GI Medical History: No Pertinent History History: Renal Disease Pyscho-Social History: Anxiety, Attention Deficit Disorder, Depression Reproductive Disorders: No Pertinent History Comment: Chronic Fatigue Syndrome, Herniated discs, Raynaud's. POLYCYSTIC KIDNEY DISEASE - Female History Hx Last Menstrual Period: post Are you now?: No - Past Surgical History Past Surgical History: Yes Neuro Surgical History: No Pertinent History Cardiac History: No Pertinent History Respiratory Surgery: No Pertinent History GI Surgical History: Cholecystectomy Genitourinary Surgical Hx: No Pertinent History Musculskeletal Surgical Hx: Other Female Surgical History: Section, Tubal Ligation Other Surgical History: neck fusion. carpal tunnel. raynauds surgery - Social History Smoking Status: Never smoker Exposure to second hand smoke: No Alcohol: None Drug Use: none Significant Family History: hypertension - Physical Exam Vital Signs: Vital Signs - 24 hr Temp Pulse Resp BP Pulse Ox 10/10/16 07:22 98.5 F 89 18 125/68 95 10/10/16 04:00 99.0 F 96 H 18 133/71 94 L 10/10/16 00:40 99.0 F 96 H 18 133/71 94 L 10/10/16 00:35 99.0 F 96 H 18 133/71 94 L 10/09/16 23:56 98 10/09/16 23:40 103 H 18 129/78 94 L 10/09/16 22:45 114 H 20 114/60 97 10/09/16 21:01 101 H 20 133/81 99 10/09/16 19:00 98.0 F 109 H 20 140/115 98 Oxygen-Last 24 hours O2 Percentage 2 Liters = 28% General Appearance: no apparent distress, other (she moves slightly, constantly , in her bed while we are talking. completely still during exam.) Neurologic Exam: alert, oriented x 3, cooperative Neck Exam: normal inspection, non-tender, No lymphadenopathy Respiratory Exam: normal breath sounds, chest tenderness, No crackles/rales, No rhonchi, No wheezing Cardiovascular Exam: regular rate/rhythm, normal heart sounds, No murmur Gastrointestinal/Abdomen Exam: soft, normal bowel sounds, No tenderness, No distention, No mass Back Exam: CVA tenderness (mild on R) Extremity Exam: normal inspection, No pedal edema, No swelling Skin Exam: normal color, warm, dry Results - Labs Lab/Micro Results: Lab Results-Last 24 Hours 10/10/16 10/10/16 Range/Units 05:15 05:15 WBC 7.4 (4.0-10.5) K/mm3 RBC 4.28 (4.1-5.4) M/mm3 Hgb 13.1 (12.0-16.0) gm/dl Hct 40.6 (35-47) % MCV 94.9 (78-100) fl MCH 30.6 (26-32) pg MCHC 32.3 (32-36) g/dl RDW 13.6 (11.5-14.0) % Plt Count 229 (150-450) K/mm3 MPV 10.5 H (6-9.5) fl Gran % 51.2 (36.0-66.0) % Lymphocytes % 34.1 (24.0-44.0) % Monocytes % 7.9 (0.0-12.0) % Eosinophils % 6.5 H (0.00-5.0) % Basophils % 0.3 (0.0-0.4) % Basophils # 0.02 (0-0.4) Sodium 141 (136-145) mEq/L Potassium 3.4 L (3.5-5.1) mEq/L Chloride 106 (98-107) mEq/L Carbon Dioxide 24.9 (21-32) mEq/L Anion Gap 13.8 (5-15) MEQ/L BUN 17 (9-20) mg/dL Creatinine 1.23 (0.55-1.30) mg/dl Estimated GFR 49 ML/MIN Glucose 148 H (70-110) MG/DL Calcium 9.3 (8.5-10.1) mg/dL Assessment/Plan (1) Urinary retention Current Visit: Yes Status: Acute Assessment & Plan: Try to wean off the catheter tonight, check post void residual in the morning. Code(s): R33.9 - RETENTION OF URINE, UNSPECIFIED (2) Abdominal pain Current Visit: Yes Status: Acute Qualifiers: Abdominal location: right upper quadrant Qualified Code(s): R10.11 - Right upper quadrant pain Assessment & Plan: has had cholecystectomy. CT basically neg. Unsure etiology. IVF, CLD. labs nl. Code(s): R10.9 - UNSPECIFIED ABDOMINAL PAIN (3) Vomiting Current Visit: No Status: Acute Qualifiers: Vomiting type: unspecified Vomiting Intractability: non-intractable Nausea presence: with nausea Qualified Code(s): R11.2 - Nausea with vomiting, unspecified Assessment & Plan: can have phenergan [place] if needed. Code(s): R11.10 - VOMITING, UNSPECIFIED (4) Syncope Current Visit: Yes Status: Acute Assessment & Plan: On telemetry. Will let Dr. Leavitt decide in the a.m. if he would like to continue workup. Code(s): R55 - SYNCOPE AND COLLAPSE
[2016-10-10] MEDS ORDERED: PHENERGAN 12.5 MG SUPP PR PRN (10:24)
[2016-10-10] MEDS: MORPHINE SULFATE 4 MG INJ IV PRN ×3 (12:45→21:16)
[2016-10-11] MEDS: Zofran 4 MG/2 ML VIAL IV PRN ×2 (00:24→07:53)
[2016-10-11] MEDS: MORPHINE SULFATE 4 MG INJ IV PRN ×7 (01:26→22:43)
[2016-10-11] MEDS: Sodium Chloride 0.9% 1000 ML 1,000 ML IV SCH (04:50)
[2016-10-11] MEDS ORDERED: Valium 5 MG PO ONE (08:59)
--- NOTE | 2016-10-11 08:59 | PCM.NOTE ---
Date and Time: 10/11/16 0857 Subjective Assessment: Pain is "tolerable" on morphine - 6/10. Xu CLD. Objective Exam General Appearance: no apparent distress Neurologic Exam: alert, oriented x 3, cooperative Skin Exam: normal color, warm, dry Respiratory Exam: normal breath sounds, lungs clear, No crackles/rales, No rhonchi, No wheezing Cardiovascular Exam: regular rate/rhythm, normal heart sounds, No murmur Gastrointestinal/Abdomen Exam: soft, normal bowel sounds, tenderness (RUQ), No distention, No mass, No guarding, No rebound Extremity Exam: No pedal edema, No swelling OBJECTIVE DATA Vital Signs: Vital Signs - 24 hr Temp Pulse Resp BP Pulse Ox 10/11/16 07:15 98.1 F 91 H 18 127/65 96 10/11/16 03:57 98.0 F 78 15 116/66 97 10/11/16 00:00 98.4 F 84 14 112/59 95 10/10/16 20:00 98.7 F 87 15 116/67 98 10/10/16 16:00 98.4 F 91 H 18 118/61 96 10/10/16 11:45 98.3 F 84 18 133/73 97 Pain Assessment - Last Documented Pain Intensity 5 Pain Scale Used 0-10 Pain Scale Intake and Output: Intake & Output 10/08/16 10/09/16 10/10/16 10/11/16 11:59 11:59 11:59 11:59 Intake Total 280 4341 Output Total 1750 Balance 280 2591 Radiology Exams: Radiology Procedures Category Date Time Status BLADDER [US] Routine Exams 10/11/16 10:23 Ordered Assessment/Plan (1) Urinary retention Current Visit: Yes Status: Acute Assessment & Plan: Will check post void residual this morning. Code(s): R33.9 - RETENTION OF URINE, UNSPECIFIED (2) Abdominal pain Current Visit: Yes Status: Acute Qualifiers: Abdominal location: right upper quadrant Qualified Code(s): R10.11 - Right upper quadrant pain Code(s): R10.9 - UNSPECIFIED ABDOMINAL PAIN (3) Vomiting Current Visit: No Status: Resolved Qualifiers: Vomiting type: unspecified Vomiting Intractability: non-intractable Nausea presence: with nausea Qualified Code(s): R11.2 - Nausea with vomiting, unspecified Code(s): R11.10 - VOMITING, UNSPECIFIED (4) Syncope Current Visit: Yes Status: Acute Assessment & Plan: check MRI brain and carotid dopplers. She is apparently a service pt to us at this point (primary care is Dr. Choe) so I will be continuing her care. Code(s): R55 - SYNCOPE AND COLLAPSE
--- NOTE | 2016-10-11 10:45 | XRAY ---
Indication: Urinary retention. Two-dimensional sonogram of the urinary bladder performed. Comparison: None Urinary bladder is normally distended with Elkins balloon catheter in situ. No focal bladder abnormality. Normal bilateral ureteral jets. Prevoid bladder volume is 414 cc. Elkins catheter was then decompressed and removed by patient's nurse. Patient was allowed to bathroom void. Postvoid volume is 16 cc. Impression: Negative urinary bladder sonogram. Prevoid and postvoid bladder volumes as above.
--- NOTE | 2016-10-11 10:46 | XRAY ---
Indication: Syncope. Two-dimensional sonogram and color Doppler imaging of the carotid arteries of the neck was performed. Comparison: March 01, 2014. Examination of the right carotid circulation negative for focal plaquing, critical stenosis, or obstruction. PSV of the CCA is 72 cm/s. PSV of the ICA is 85 cm/s. ICA/CCA ratio is 1.2. Normal antegrade vertebral flow. Examination of the left carotid circulation also remains widely patent. PSV of the CCA is 98 cm/s. PSV of the ICA is 77 cm/s. ICA/CCA ratio is 0.8. Normal antegrade vertebral artery flow. Impression: Stable widely patent carotid arteries of the neck bilaterally. Velocity measurements and ratios also negative for hemodynamically significant flow-limiting stenosis.
--- NOTE | 2016-10-11 12:13 | XRAY ---
Indication: Syncopal episodes for 2 months. Sagittal, coronal, and axial MRI brain was performed without contrast using T1 and T2-weighted sequences. Comparison: March 01, 2014. Ventriculosulcal pattern appears symmetric. No acute intracranial hemorrhage, abnormal extra-axial fluid collection, or mass effect. Diffusion images are negative for restricted signal. Fourth ventricle is midline. No hydrocephalus. 7/8 cranial nerve complex bilaterally symmetric. Normal flow-void signal within the major intracerebral circulation. Normal-appearing craniocervical junction and sella turcica. Mild mucosal thickening of both ethmoid and inferior left maxillary sinuses. Impression: Again negative MRI brain without contrast exam. Incidental paranasal sinus disease.
[2016-10-12] MEDS: MORPHINE SULFATE 4 MG INJ IV PRN ×2 (03:31→07:35)
[2016-10-12] MEDS ORDERED: Norco 10/325 MG Tablet PO PRN (08:28)
--- NOTE | 2016-10-12 08:28 | PCM.NOTE ---
Date and Time: 10/12/16824 Subjective Assessment: Pt's abdominal pain is better this morning. She is hungry. - Review of Systems Constitutional: No Fever Abdominal/Gastrointestinal: Abdominal Pain Objective Exam General Appearance: no apparent distress Neurologic Exam: alert, oriented x 3, cooperative Skin Exam: normal color, warm, dry Respiratory Exam: normal breath sounds, lungs clear, No crackles/rales, No rhonchi Cardiovascular Exam: regular rate/rhythm, normal heart sounds, No murmur Gastrointestinal/Abdomen Exam: soft, tenderness (RLQ, mild), No guarding, No rebound Extremity Exam: No pedal edema, No swelling Back Exam: normal inspection OBJECTIVE DATA Vital Signs: Vital Signs - 24 hr Temp Pulse Resp BP Pulse Ox 10/12/16 07:43 98.2 F 90 18 129/69 95 10/12/16 04:00 98.2 F 74 16 120/65 95 10/12/16 00:00 98.5 F 70 18 131/65 100 10/11/16 20:00 98.4 F 84 20 141/65 98 10/11/16 15:54 98.2 F 97 H 18 135/71 94 L 10/11/16 11:08 98.4 F 74 18 151/65 95 Pain Assessment - Last Documented Pain Intensity 6 Pain Scale Used 0-10 Pain Scale Intake and Output: Intake & Output 10/09/16 10/10/16 10/11/16 10/12/16 11:59 11:59 11:59 11:59 Intake Total 280 4821 1240 Output Total 4750 Balance 777 73 2113 Radiology Exams: Radiology Procedures Category Date Time Status BLADDER [US] Routine Exams 10/11/16 10:23 Completed CAROTID BILATERAL [US] Routine Exams 10/11/16 09:00 Completed MRI BRAIN W/O CONTRAST [MRI] Routine Exams 10/11/16 09:00 Completed Assessment/Plan (1) Abdominal pain Current Visit: Yes Status: Acute Qualifiers: Abdominal location: right upper quadrant Qualified Code(s): R10.11 - Right upper quadrant pain Assessment & Plan: Improved. will advance diet and change IV pain meds to po. If doing well may d/ c after office hours today. Code(s): R10.9 - UNSPECIFIED ABDOMINAL PAIN (2) Syncope Current Visit: Yes Status: Acute Assessment & Plan: none here. consider event monitor outpatient but she needs to follow up with her primary care provider. She is not a patient at [facility] or [facility], has transferred out of the practice. Code(s): R55 - SYNCOPE AND COLLAPSE (3) Urinary retention Current Visit: Yes Status: Resolved Assessment & Plan: Postvoid residual was negligible yesterday. Code(s): R33.9 - RETENTION OF URINE, UNSPECIFIED
[2016-10-12] MEDS: PERCOCET TABLET 5/325MG PO PRN ×2 (11:50→16:40)
[2016-10-12] MEDS ORDERED: XANAX 1 MG PO PRN (13:44)
[2016-10-12] MEDS ORDERED: ALPRAZOLAM 2 MG PO SCH (13:45)
[2016-10-12] MEDS ORDERED: COREG 12.5 MG PO SCH (14:00)
[2016-10-12] MEDS ORDERED: SYNTHROID 100 MCG PO SCH (14:00)
[2016-10-12 16:16] VITALS: BP 113/53; PULSE 91; O2SAT 93
--- NOTE | 2016-10-12 18:16 | PCM.DS ---
Discharge Summary Date of Admission: 10/10/16 00:35 Admitting Physician: SALO YAN Primary Care Provider: ELLIOTT DOBBS Allergies Allergies codeine Allergy (Mild, Verified 10/09/16 19:10) aripiprazole [From Abilify] Allergy (Verified 10/09/16 19:10) aspirin Allergy (Verified 10/09/16 19:10) hydrocodone bitartrate [From Vicodin] Allergy (Verified 10/12/16 10:36) Hives ibuprofen Allergy (Verified 10/09/16 19:10) ketorolac tromethamine [From Toradol] Allergy (Verified 10/09/16 19:10) quetiapine fumarate [From Seroquel] Allergy (Verified 10/09/16 19:10) tramadol Allergy (Verified 10/09/16 19:10) acetaminophen [From Vicodin] Adverse Reaction (Verified 10/09/16 19:10) VOMITED Hospital Summary - Hospital Course Hospital Course: Pt admitted with abd pain, labs were non acute, CT abd/pelvis non-acute. She had IVF and pain meds for several days and gradually felt better. She wanted all her meds refilled on discharge but with some question of pain-seeking behavior in the past I asked that she please call her PCP for medicine refills. Tolerating po at discharge. - Vitals & Intake/Output Vital Signs: Vital Signs Temperature 98.6 F 10/12/16 16:00 Pulse Rate 91 H 10/12/16 16:00 Respiratory Rate 18 10/12/16 16:00 Blood Pressure 113/53 10/12/16 16:00 O2 Sat by Pulse Oximetry 93 L 10/12/16 16:00 Oxygen-Last Documented O2 Percentage 2 Liters = 28% Intake & Output: Intake & Output 10/10/16 10/11/16 10/12/16 10/13/16 11:59 11:59 11:59 11:59 Intake Total 280 4821 1240 1060 Output Total 4750 950 600 Balance 280 71 290 460 - Lab Result Diagrams: 10/10/16 05:15 10/10/16 05:15 - Radiology Exams Ordered Rad Exams-Entire Visit: Radiology Procedures Category Date Time Status BLADDER [US] Routine Exams 10/11/16 10:23 Completed CAROTID BILATERAL [US] Routine Exams 10/11/16 09:00 Completed MRI BRAIN W/O CONTRAST [MRI] Routine Exams 10/11/16 09:00 Completed Discharge Exam General Appearance: no apparent distress, obese, other (done this morning) Neurologic Exam: alert, oriented x 3, cooperative Skin Exam: normal color, warm, dry Respiratory Exam: normal breath sounds, lungs clear, No crackles/rales, No rhonchi, No wheezing Cardiovascular Exam: regular rate/rhythm, normal heart sounds, No murmur Gastrointestinal/Abdomen Exam: soft, normal bowel sounds, tenderness (mild, RLQ) Extremity Exam: No pedal edema, No swelling Final Diagnosis/Problem List - Final Discharge Diagnosis/Problem (1) Abdominal pain Current Visit: Yes Status: Acute Assessment & Plan: improved, unsure etiology. Labs and CT abd/pelvis were unremarkable. F/u with her PCP in 1 week. (2) Syncope Current Visit: Yes Status: Acute Assessment & Plan: MRI brain and carotid dopplers done at [facility]. Echocardiogram done within the past few months. No syncope here. F/u outpatient with PCP. (3) Urinary retention Current Visit: Yes Status: Resolved Assessment & Plan: Was an issue on admission, saucedo catheter was placed. About 36 hours later bladder training progressed and without the catheter her postvoid residual was negligible. She had no other urinary issues during her stay. - Discharge Disposition: Home, Self-Care Condition: Stable Prescriptions: Continue Levothyroxine Sodium 75 Mcg [Synthroid 75 Mcg] 100 mcg PO DAILY Carvedilol 12.5 mg [Coreg 12.5 mg] 12.5 mg PO BID Methylphenidate 5 mg [Ritalin 5 MG] 20 mg PO TID Alprazolam [Xanax Xr] 2 mg PO BID Simvastatin [Zocor] 20 mg PO HS Amitriptyline HCl [Elavil] 100 mg PO HS Follow up with: ELLIOTT DOBBS [Primary Care Provider] - Forms: Patient Portal Information
[2016-10-12] MEDS ORDERED: AMITRIPTYLINE HCL 100 MG PO SCH (22:00)
[2016-10-12] MEDS ORDERED: ZOCOR 20MG PO SCH (22:00)
== END 2016-10-12 19:05 | disposition home or self-care (01) ==
LOC: ED 18:57 → MED SURG 10-10 00:35
PROVIDERS: ADMIT Family Medicine; ATTEND Family Medicine
DX: R10.11 Right upper quadrant pain (principal); R55 Syncope and collapse; R33.9 Retention of urine, unspecified; I10 Essential (primary) hypertension; E03.9 Hypothyroidism, unspecified; M19.90 Unspecified osteoarthritis, unspecified site; M79.7 Fibromyalgia; Z86.73 Personal history of transient ischemic attack (TIA), and cerebral infarction without residual deficits; F41.9 Anxiety disorder, unspecified; Q61.3 Polycystic kidney, unspecified
CPT/HCPCS: 36000; 36415; 70551; 74176; 76705; 80048; 80053; 80307; 81002; 83605; 83690; 84484; 84703; 85025; 93005; 93880; 96360; 96374; 96375; 99285; G0378; J2270; J2405; P9612; A9270-GY

== ENCOUNTER 2016-10-29 15:00 | Inpatient (IN) | payer MEDICAID ==
--- NOTE | 2016-10-29 15:45 | ERPHSYRPT ---
- History of Present Illness Time Seen by Provider: 10/29/16 15:44 Historian: patient Exam Limitations: no limitations Patient Subjective Stated Complaint: Pt c/o right flank pain for several weeks - was admitted to [facility] a couple weeks ago for same pain. Pt states pain has been bad for last 3 days. Pt states she peed blood for two days and has not been able to urinate today even though she has the urge. Triage Nursing Assessment: Pt alert and oriented x3. skin pink warm and dry. afebrile. abdomen soft and tender in RUQ. bowel sounds present x4 Physician History: The patient is a 50-year-old female who comes in complaining of right sided abdominal pain for several weeks that has gotten worse in the past 3 days. She was admitted several weeks ago for the same thing but nothing definitively was found. She vomited yesterday. She did not call her primary care doctor. She also states that for the past 2 days she has been "peeing blood". She now has difficulty urinating. Her past medical history is significant for pyelonephritis, polycystic kidney disease, urinary retention, depression, tubal ligation, and cholecystectomy. Timing/Duration: day(s) (3) Activities at Onset: none Quality: sharpness Abdominal Pain Onset Location: RUQ Pain Radiation: back Severity of Pain-Max: moderate Severity of Pain-Current: moderate Modifying Factors: Improves With: vomiting Associated Symptoms: vomiting Previous symptoms: same symptoms as today Allergies/Adverse Reactions: codeine Allergy (Mild, Verified 10/09/16 19:10) aripiprazole [From Abilify] Allergy (Verified 10/09/16 19:10) aspirin Allergy (Verified 10/09/16 19:10) hydrocodone bitartrate [From Vicodin] Allergy (Verified 10/12/16 10:36) Hives ibuprofen Allergy (Verified 10/09/16 19:10) ketorolac tromethamine [From Toradol] Allergy (Verified 10/09/16 19:10) quetiapine fumarate [From Seroquel] Allergy (Verified 10/09/16 19:10) tramadol Allergy (Verified 10/09/16 19:10) acetaminophen [From Vicodin] Adverse Reaction (Verified 10/09/16 19:10) VOMITED Home Medications: Carvedilol 12.5 mg [Coreg 12.5 mg] 12.5 mg PO BID 09/28/15 [History] Levothyroxine Sodium 75 Mcg [Synthroid 75 Mcg] 100 mcg PO DAILY 09/28/15 [ History] Methylphenidate 5 mg [Ritalin 5 MG] 10 mg PO TID 12/09/15 [History] Alprazolam [Xanax Xr] 2 mg PO HS 05/07/16 [History] Amitriptyline HCl [Elavil] 100 mg PO HS 09/06/16 [History] Simvastatin [Zocor] 20 mg PO HS 09/06/16 [History] Alprazolam [Xanax] 2 mg PO QAM PRN 10/29/16 [History] Hx Tetanus, Diphtheria Vaccination/Date Given: Yes Hx Influenza Vaccination/Date Given: Yes Hx Pneumococcal Vaccination/Date Given: No - Review of Systems Constitutional: No Fever, No Chills Eyes: No Symptoms Ears, Nose, & Throat: No Symptoms Respiratory: No Cough, No Dyspnea Cardiac: No Chest Pain, No Edema, No Syncope Abdominal/Gastrointestinal: Vomiting Genitourinary Symptoms: Urinary Retention, No Dysuria Musculoskeletal: No Back Pain, No Neck Pain Skin: No Rash Neurological: No Dizziness, No Focal Weakness, No Sensory Changes Psychological: No Symptoms Endocrine: No Symptoms Hematologic/Lymphatic: No Symptoms Immunological/Allergic: No Symptoms All Other Systems: Reviewed and Negative - Past Medical History Pertinent Past Medical History: Yes Neurological History: Migraines, TIA ENT History: No Pertinent History Cardiac History: Hypertension Respiratory History: No Pertinent History Endocrine Medical History: Hypothyroidism Musculoskeletal History: Arthritis, Degenerative Disk Disease, Fibromyalgia GI Medical History: No Pertinent History History: Renal Disease Psycho-Social History: Anxiety, Attention Deficit Disorder, Depression Female Reproductive Disorders: No Pertinent History Other Medical History: Chronic Fatigue Syndrome, Herniated discs, Raynaud's. POLYCYSTIC KIDNEY DISEASE - Past Surgical History Past Surgical History: Yes Neuro Surgical History: No Pertinent History Cardiac: No Pertinent History Respiratory: No Pertinent History Gastrointestinal: Cholecystectomy Genitourinary: No Pertinent History Musculoskeletal: Other Female Surgical History: Section, Tubal Ligation Other Surgical History: neck fusion. carpal tunnel. raynauds surgery - Social History Smoking Status: Never smoker Exposure to second hand smoke: No Alcohol Use: None Drug Use: none Patient Lives Alone: No Significant Family History: hypertension - Female History Hx Last Menstrual Period: n/a Hx Now: No - Nursing Vital Signs Nursing Vital Signs: Initial Vital Signs Temperature 98.1 F Temperature Source Oral Pulse Rate 85 Respiratory Rate 20 Blood Pressure [Right Arm] 130/70 Pain Intensity 7 - Physical Exam General Appearance: no apparent distress, alert Eye Exam: PERRL/EOMI, eyes nml inspection Ears, Nose, Throat Exam: normal ENT inspection, pharynx normal, moist mucous membranes Neck Exam: normal inspection, non-tender, supple, full range of motion Respiratory Exam: normal breath sounds, lungs clear, No respiratory distress Cardiovascular Exam: regular rate/rhythm, normal heart sounds Gastrointestinal/Abdomen Exam: tenderness (RUQ) Pelvic Exam: not done Rectal Exam: not done Back Exam: normal inspection, normal range of motion, No CVA tenderness, No vertebral tenderness Extremity Exam: normal inspection, normal range of motion, pelvis stable Neurologic Exam: alert, oriented x 3, cooperative, normal mood/affect, nml cerebellar function, sensation nml, No motor deficits Skin Exam: normal color, warm, dry SpO2 Interpretation: normal SpO2: 99 Oxygen Delivery: Room Air - CT Exams Abdomen/Pelvis CT Interpretation: Tele-radiologist Report, Normal Appendix, Other (no new acute findings per Dr Millard) Ordered Tests: Active Orders 24 hr Category Date Time Status IV Insertion STAT Care 10/29/16 15:49 Active ABDOMEN AND PELVIS W/0 CONTRAS [CT] Stat Exams 10/29/16 15:50 Taken CBC W DIFF Stat Lab 10/29/16 17:45 Completed CMP Stat Lab 10/29/16 17:45 Received LIPASE Stat Lab 10/29/16 17:45 Received Lactic Acid Stat Lab 10/29/16 17:50 Completed UA W/RFX UR CULTURE Stat Lab 10/29/16 15:49 Ordered Medication Summary Discontinued Medications Generic Name Dose Route Start Last Admin Trade Name Freq PRN Reason Stop Dose Admin Sodium Chloride 1,000 mls @ 999 mls/hr 10/29/16 15:49 10/29/16 16:10 Sodium Chloride 0.9% 1000 Ml IV 10/29/16 16:49 999 mls/hr .Q1H1M STA Administration Sodium Chloride Confirm 10/29/16 16:07 Sodium Chloride 0.9% 1000 Ml Administered 10/29/16 16:08 Dose 1,000 mls @ ud .ROUTE .STK-MED ONE Ondansetron HCl 4 mg 10/29/16 15:49 10/29/16 16:10 Zofran 4 Mg/2 Ml Vial IV 10/29/16 15:50 4 mg STAT ONE Administration Ondansetron HCl Confirm 10/29/16 16:07 Zofran 4 Mg/2 Ml Vial Administered 10/29/16 16:08 Dose 4 mg .ROUTE .STK-MED ONE Lab/Rad Data: Laboratory Result Diagrams 10/29/16 17:45 Laboratory Results 10/29/16 10/29/16 Range/Units 17:50 17:45 WBC 6.4 (4.0-10.5) K/mm3 RBC 4.63 (4.1-5.4) M/mm3 Hgb 14.2 (12.0-16.0) gm/dl Hct 43.8 (35-47) % MCV 94.6 (78-100) fl MCH 30.7 (26-32) pg MCHC 32.4 (32-36) g/dl RDW 14.2 H (11.5-14.0) % Plt Count 274 (150-450) K/mm3 MPV 10.0 H (6-9.5) fl Gran % 64.1 (36.0-66.0) % Lymphocytes % 26.7 (24.0-44.0) % Monocytes % 6.1 (0.0-12.0) % Eosinophils % 2.8 (0.00-5.0) % Basophils % 0.3 (0.0-0.4) % Basophils # 0.02 (0-0.4) Lactic Acid 1.1 (0.4-2.0) - Progress Progress: improved Discussed with : Yanira Will see patient in: hospital (observation) Counseled pt/family regarding: lab results, diagnosis, rad results - Departure Time of Disposition: 18:16 Departure Disposition: Observation (Per Dr Doyle) Clinical Impression: Abdominal pain Condition: Stable Critical Care Time: No
[2016-10-29] MEDS ORDERED: Sodium Chloride 0.9% 1000 ML 1,000 ML IV STA (15:49)
[2016-10-29] MEDS ORDERED: Zofran 4 MG/2 ML VIAL IV ONE (15:49)
[2016-10-29] MEDS ORDERED: Zofran 4 MG/2 ML VIAL ONE (16:07)
[2016-10-29] MEDS ORDERED: Sodium Chloride 0.9% 1000 ML 1,000 ML ONE (16:07)
[2016-10-29 17:57] LABS: BASOPHIL % 0.3 % (0.0-0.4); Eosinophil % 2.8 % (0.00-5.0); Granulocytes % 64.1 % (36.0-66.0); Lymphocytes % 26.7 % (24.0-44.0); Mean Cell Volume 94.6 fl (78-100); Mean Corpuscular Hemoglobin 30.7 pg (26-32); Monocytes % 6.1 % (0.0-12.0); Platelet Count 274 K/mm3 (150-450); Red Blood Count 4.63 M/mm3 (4.1-5.4); Red Cell Distribution Width 14.2 % (11.5-14.0); White Blood Count 6.4 K/mm3 (4.0-10.5)
[2016-10-29 18:21] LABS: ALBUMIN 3.9 g/dL (3.4-5.0); ANION GAP 12.1 MEQ/L (5-15); BILIRUBIN,TOTAL 0.4 mg/dL (0.2-1.0); Carbon Dioxide 28.4 mEq/L (21-32); Potassium 4.5 mEq/L (3.5-5.1); Total Protein 7.8 gm/dL (6.4-8.2)
[2016-10-29] MEDS ORDERED: TYLENOL 325 MG PO PRN (20:38)
[2016-10-29] MEDS ORDERED: Sodium Chloride 0.9% 1000 ML 1,000 ML IV SCH (20:38)
--- NOTE | 2016-10-29 21:38 | XRAY ---
Indication: Right abdominal pain. Blood in urine. Multiple contiguous axial images obtained through the abdomen and pelvis without contrast as ordered. Comparison: October 09, 2016. There is now mild bibasilar dependent atelectasis. Stable benign right lower lobe subcentimeter peripheral nodule. Heart is not enlarged. Noncontrasted stomach and bowel loops appear nonobstructed. Normal appendix. No free fluid/air. Stable bilateral renal scarring, cysts, and nonobstructing left renal micro-calculus. Previous Elkins catheter has been removed. Again previous cholecystectomy. Remaining liver, pancreas, spleen, adrenal glands, kidneys, ureters, bladder, uterus, and aorta appear unremarkable for noncontrast exam. Impression: 1. Stable bilateral renal scarring, cysts, and nonobstructing left renal micro-calculus. 2. No new/acute intra-abdominal/pelvic abnormalities on this noncontrast exam. CTDI 20.42
[2016-10-29 21:53] LABS: ADD URINE CULTURE? NO (NO); COMPLETE URINE MICROSCOPIC? NO; Collection Type CATH
--- NOTE | 2016-10-29 22:14 | XRAY ---
Indication: Line placement. Comparison: September 06, 2016. Portable chest demonstrates new right subclavian central venous access catheter with the tip projecting over the SVC. Lungs inflated and clear. Heart is not enlarged. Bony thorax intact again with lower cervical fusion surgery. Impression: New right subclavian central line without complications. Comment: Preliminary interpretation was made by [facility]. No discrepancy.
[2016-10-30] MEDS: MORPHINE SULFATE 2 MG INJ IV PRN ×5 (00:08→08:59)
[2016-10-30] MEDS: Zosyn 3.375GM/100 Ml D5W 3.375 GM/100 ML IVPB IV SCH ×4 (00:08→18:21)
[2016-10-30] MEDS ORDERED: XANAX 1 MG ONE (00:48)
[2016-10-30] MEDS: XANAX 1 MG PO SCH ×2 (00:53→22:11)
[2016-10-30] MEDS: COREG 12.5 MG PO SCH ×3 (00:53→22:10)
[2016-10-30] MEDS: Zofran 4 MG/2 ML VIAL IV PRN ×2 (02:10→06:06)
[2016-10-30 06:04] LABS: BASOPHIL % 0.2 % (0.0-0.4); Eosinophil % 2.2 % (0.00-5.0); Granulocytes % 65.3 % (36.0-66.0); Lymphocytes % 25.4 % (24.0-44.0); Mean Cell Volume 96.2 fl (78-100); Mean Platelet Volume 10.1 fl (6-9.5); Monocytes % 6.9 % (0.0-12.0); Platelet Count 266 K/mm3 (150-450); Red Blood Count 3.96 M/mm3 (4.1-5.4); Red Cell Distribution Width 14.1 % (11.5-14.0)
[2016-10-30] MEDS: Dextrose 5% -0.45 NaCl 1000 ML 1,000 ML IV SCH ×2 (06:06→16:52)
[2016-10-30 06:14] LABS: Mean Corpuscular Hemoglobin 30.5 pg (26-32)
[2016-10-30 06:32] LABS: ANION GAP 11.6 MEQ/L (5-15); Carbon Dioxide 26.7 mEq/L (21-32); Potassium 3.9 mEq/L (3.5-5.1)
[2016-10-30] MEDS ORDERED: Sodium Chloride 0.9% 500 ML 500 ML IV ONE (09:51)
[2016-10-30] MEDS: Phenergan 25 MG INJ IV PRN ×4 (10:06→23:27)
[2016-10-30] MEDS ORDERED: XANAX 1 MG PO PRN (10:42)
[2016-10-30] MEDS: Ritalin 5 MG PO SCH ×2 (11:30→16:53)
[2016-10-30] MEDS: SYNTHROID 100 MCG PO SCH (11:30)
[2016-10-30] MEDS: Morphine PCA 1 MG/ML 30 ML IV PRN ×3 (11:30→18:48)
--- NOTE | 2016-10-30 15:21 | HP ---
CHIEF COMPLAINT: Nausea, vomiting and right upper quadrant flank pain. HISTORY OF PRESENT ILLNESS: The patient is a 51 year-old white female presenting now for the above complaints. She reports that she had a similar episode when she was in the hospital three weeks ago. She hesitated to come back because she felt that people would think was malingering and just looking for pain medicine. The patient on evaluation was found to have urinary retention with over 600 cc of urine in her bladder with placement of Elkins catheter. Evaluation otherwise has essentially been negative. CT scan showed scarring of the kidneys, cysts were present and no obstruction or new injury or acute abdominal findings were present. PHYSICAL EXAMINATION: Revealed a 51 year-old white female who appears to be in distress due to her pain. She is moving fairly constantly in the bed to try to get comfortable. HEENT: Normocephalic, atraumatic. Pupils equal round reactive to light. Extraocular movements intact. Oropharynx is dry. NECK: Supple without lymphadenopathy, thyromegaly or JVD. CHEST: Clear to auscultation with good air movement bilaterally. HEART: Regular rate and rhythm without murmurs, rubs or gallops. ABDOMEN: Soft, but tender in the right upper quadrant particularly. Bowel sounds are fairly quiet. No guarding or rebound was noted. EXTREMITIES: Without clubbing, cyanosis or edema. NEUROLOGIC: The patient is alert and oriented x3. LAB DATA AND TESTS: Laboratory studies had shown a fairly normal looking UA. Her sugar was 194, BUN 23, creatinine 1.48. Electrolytes were normal. Liver enzymes were normal. Her white blood cell count was noted to be 10,000 with no significant left shift. Her hemoglobin is 12.1, PLT count 266,000. Lactic acid 1.1. ASSESSMENT: A patient with right flank pain and history of polycystic kidney disease and urinary retention. The patient had a Elkins catheter placed to drain the bladder to hopefully avoid any post-obstructive problems. She will maintain the Elkins catheter for a week to allow her bladder to decompress. She has been placed on Zosyn empirically for the possibility of pyelonephritis although the patient does not have a fever or significant white blood cell count elevation or abnormal urine but there is no other diagnosis comes to mind as far as particular treatment plan otherwise is to control her pain and nausea in the meantime we will rehydrate her with IV fluids. She has already had a curbside evaluation by Dr. Ortega who felt that she did not have a surgical abdomen. The patient does see Dr. Sawant from urology standpoint if she does not improve with the pain, fluid control and antibiotics over the next 24 to 48 hours we may consider transferring her to another facility where her head of english can take over her care.
--- NOTE | 2016-10-30 15:42 | OP ---
SURGERY DATE/TIME: 10/30/2016 PREOPERATIVE DIAGNOSIS: Inadequate access for IV fluids. POSTOPERATIVE DIAGNOSIS: Inadequate access for IV fluids. PROCEDURE: Right subclavian central venous line. SURGEON: Reinaldo Ortega M.D. ANESTHESIA: Local. Location bedside. COMPLICATIONS: None. CONDITION: Stable. INDICATION: A 51 year-old has been totally dehydrated, has been vomiting for days, has no IV access has been tried by multiple people in the emergency room and on the nursing floor. DESCRIPTION OF PROCEDURE: Routine prep and drape. Venipuncture was tedious but obtained. It was wired. It was threaded. It aspirated nicely and it was secured with 3-0 Prolene. Sterile dressing applied. The patient tolerated the procedure satisfactorily.
--- NOTE | 2016-10-30 15:47 | CONS ---
CONSULT DATE: 10/30/2016 HISTORY: The patient had been in just a few months ago and had a complete evaluation with minimal findings. Now has for three or four days severe nausea and vomiting progressing to complete dehydration almost ketoacidosis. She has no IV yet. She looked very ill. On questioning she seems to have significant right flank pain and said she has been bleeding urine. 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 She has a little bit of nausea. She has had a lot of vomiting. She has had no diarrhea. Her chart is reviewed. Her labs are reviewed. She is totally dehydrated. On abdominal examination she is nondistended and she is nontender and she clearly points to her right flank where she had the discomfort. It is unclear whether she had hematuria or whether she just severely had dehydrated, concentrated urine. IMPRESSION: Impression most consistent with right pyelonephritis.
[2016-10-30] MEDS: ZOCOR 20MG PO SCH (22:10)
[2016-10-31] MEDS: Zosyn 3.375GM/100 Ml D5W 3.375 GM/100 ML IVPB IV SCH ×4 (00:42→17:10)
[2016-10-31] MEDS: Dextrose 5% -0.45 NaCl 1000 ML 1,000 ML IV SCH ×3 (00:42→19:17)
[2016-10-31] MEDS: Phenergan 25 MG INJ IV PRN ×5 (04:08→20:35)
[2016-10-31 05:24] LABS: BASOPHIL % 0.3 % (0.0-0.4); Eosinophil % 2.9 % (0.00-5.0); Granulocytes % 55.3 % (36.0-66.0); Lymphocytes % 32.6 % (24.0-44.0); Mean Cell Volume 97.5 fl (78-100); Monocytes % 8.9 % (0.0-12.0); Platelet Count 194 K/mm3 (150-450); Red Blood Count 3.57 M/mm3 (4.1-5.4)
[2016-10-31 05:26] LABS: Mean Corpuscular Hemoglobin 30.2 pg (26-32)
[2016-10-31 05:42] LABS: ALBUMIN 3.1 g/dL (3.4-5.0); BILIRUBIN,TOTAL 0.6 mg/dL (0.2-1.0); Carbon Dioxide 28.6 mEq/L (21-32); Potassium 3.4 mEq/L (3.5-5.1); Total Protein 6.2 gm/dL (6.4-8.2)
[2016-10-31 05:56] LABS: Erythrocyte Sedimentation Rate 16 mm/hr (0-20)
[2016-10-31] MEDS: COREG 12.5 MG PO SCH ×2 (07:24→22:57)
[2016-10-31] MEDS: Ritalin 5 MG PO SCH ×3 (07:24→16:28)
[2016-10-31] MEDS: SYNTHROID 100 MCG PO SCH (07:24)
[2016-10-31] MEDS: Morphine PCA 1 MG/ML 30 ML IV PRN ×2 (09:18→19:59)
[2016-10-31] MEDS: Zofran 4 MG/2 ML VIAL IV PRN ×3 (10:18→21:40)
[2016-10-31] MEDS: ZOCOR 20MG PO SCH (22:57)
[2016-10-31] MEDS: XANAX 1 MG PO SCH (22:57)
[2016-11-01] MEDS: Phenergan 25 MG INJ IV PRN ×5 (00:56→21:03)
[2016-11-01] MEDS: Dextrose 5% -0.45 NaCl 1000 ML 1,000 ML IV SCH ×3 (03:20→20:11)
[2016-11-01] MEDS: Zofran 4 MG/2 ML VIAL IV PRN ×4 (03:20→19:09)
[2016-11-01 05:19] LABS: Mean Cell Volume 96.3 fl (78-100); Mean Platelet Volume 9.8 fl (6-9.5); Platelet Count 197 K/mm3 (150-450); Red Blood Count 3.77 M/mm3 (4.1-5.4); Red Cell Distribution Width 13.6 % (11.5-14.0)
[2016-11-01 05:37] LABS: Mean Corpuscular Hemoglobin 30.7 pg (26-32)
[2016-11-01 05:46] LABS: ALBUMIN 2.9 g/dL (3.4-5.0); ANION GAP 9.8 MEQ/L (5-15); BILIRUBIN,TOTAL 0.8 mg/dL (0.2-1.0); Carbon Dioxide 30.1 mEq/L (21-32); Potassium 3.6 mEq/L (3.5-5.1)
[2016-11-01] MEDS: Zosyn 3.375GM/100 Ml D5W 3.375 GM/100 ML IVPB IV SCH ×4 (06:29→18:32)
[2016-11-01] MEDS: Ritalin 5 MG PO SCH ×3 (08:07→18:39)
[2016-11-01] MEDS: SYNTHROID 100 MCG PO SCH (10:24)
[2016-11-01] MEDS: COREG 12.5 MG PO SCH ×2 (10:24→21:02)
--- NOTE | 2016-11-01 11:17 | PCM.NOTE ---
Date and Time: 11/01/16 1114 Subjective Assessment: Pt's pain 5-6/10 wiht the pain meds. Nausea controlled with IV meds (not vomiting, still having some nausea). Pain is still RUQ/R flank. - Review of Systems Constitutional: No Fever Abdominal/Gastrointestinal: Abdominal Pain, Nausea Objective Exam General Appearance: mild distress Neurologic Exam: alert, oriented x 3, cooperative Skin Exam: normal color, warm, dry Respiratory Exam: normal breath sounds, lungs clear, No crackles/rales, No rhonchi, No wheezing Cardiovascular Exam: regular rate/rhythm, normal heart sounds, No murmur Gastrointestinal/Abdomen Exam: soft, normal bowel sounds, tenderness (RUQ), No mass, No guarding, No rebound Extremity Exam: No pedal edema, No swelling Back Exam: normal inspection, No CVA tenderness OBJECTIVE DATA Vital Signs: Vital Signs - 24 hr Temp Pulse Resp BP BP Pulse Ox 11/01/16 08:00 97.7 F 89 12 122/68 94 L 11/01/16 07:59 94 L 11/01/16 07:19 99 11/01/16 04:00 98.5 F 82 16 106/55 97 11/01/16 03:59 96 10/31/16 23:59 96 10/31/16 22:55 98.5 F 87 18 121/57 96 10/31/16 20:00 98.5 F 80 12 113/60 97 10/31/16 19:59 97 10/31/16 16:00 97.9 F 82 16 118/59 95 10/31/16 12:00 97.8 F 81 18 118/63 90 L Pain Assessment - Last Documented Pain Intensity 6 Pain Scale Used 0-10 Pain Scale Intake and Output: Intake & Output 10/29/16 10/30/16 10/31/16 11/01/16 11:59 11:59 11:59 11:59 Intake Total 4617 4482 Output Total 3508 0392 Balance 1172 -393 Lab Results: Lab Results-Last 24 Hours 11/01/16 11/01/16 Range/Units 05:00 05:00 WBC 7.0 (4.0-10.5) K/mm3 RBC 3.77 L (4.1-5.4) M/mm3 Hgb 11.6 L (12.0-16.0) gm/dl Hct 36.3 (35-47) % MCV 96.3 (78-100) fl MCH 30.7 (26-32) pg MCHC 32.0 (32-36) g/dl RDW 13.6 (11.5-14.0) % Plt Count 197 (150-450) K/mm3 MPV 9.8 H (6-9.5) fl Sodium 141 (136-145) mEq/L Potassium 3.6 (3.5-5.1) mEq/L Chloride 105 (98-107) mEq/L Carbon Dioxide 30.1 (21-32) mEq/L Anion Gap 9.8 (5-15) MEQ/L BUN 7 L (9-20) mg/dL Creatinine 1.20 (0.55-1.30) mg/dl Estimated GFR 50 ML/MIN Glucose 120 H (70-110) MG/DL Calcium 8.8 (8.5-10.1) mg/dL Total Bilirubin 0.80 (0.2-1.0) mg/dL AST 113 H (15-37) U/L ALT 96 H (12-78) U/L Alkaline Phosphatase 54 (46-116) U/L Serum Total Protein 6.0 L (6.4-8.2) gm/dL Albumin 2.9 L (3.4-5.0) g/dL Assessment/Plan (1) Right flank pain Current Visit: Yes Status: Acute Assessment & Plan: Concern for renal etiology; there is nothing apparent on u/s, but will consult nephrology in the morning. Code(s): R10.9 - UNSPECIFIED ABDOMINAL PAIN (2) Abdominal pain Current Visit: Yes Status: Acute Assessment & Plan: Recurrent. Consult nephrology as above and urology as below. Code(s): R10.9 - UNSPECIFIED ABDOMINAL PAIN (3) Urinary retention Current Visit: Yes Status: Acute Assessment & Plan: Recurrent. Had a saucedo catheter during her last stay; it was discontinued prior to discharge and she was able to urinate at that time. Will consult urology in the morning. Code(s): R33.9 - RETENTION OF URINE, UNSPECIFIED (4) Polycystic kidney disease Current Visit: No Status: Chronic Code(s): Q61.3 - POLYCYSTIC KIDNEY, UNSPECIFIED
[2016-11-01] MEDS: Morphine PCA 1 MG/ML 30 ML IV PRN (11:34)
[2016-11-01] MEDS: ENOXAPARIN SODIUM SQ SCH (12:32)
[2016-11-01] MEDS: MORPHINE SULFATE 4 MG INJ IV PRN ×3 (15:28→21:38)
[2016-11-01] MEDS: ZOCOR 20MG PO SCH (21:03)
[2016-11-01] MEDS: XANAX 1 MG PO SCH (21:03)
[2016-11-02] MEDS: Dextrose 5% -0.45 NaCl 1000 ML 1,000 ML IV SCH ×2 (04:03→13:53)
[2016-11-02] MEDS: Zosyn 3.375GM/100 Ml D5W 3.375 GM/100 ML IVPB IV SCH ×5 (05:37→23:25)
[2016-11-02] MEDS: MORPHINE SULFATE 4 MG INJ IV PRN (05:37)
[2016-11-02 05:43] LABS: BASOPHIL % 0.3 % (0.0-0.4); Eosinophil % 4.5 % (0.00-5.0); Granulocytes % 62.1 % (36.0-66.0); Lymphocytes % 24.8 % (24.0-44.0); Mean Cell Volume 95.8 fl (78-100); Mean Corpuscular Hemoglobin 30.9 pg (26-32); Mean Platelet Volume 9.8 fl (6-9.5); Monocytes % 8.3 % (0.0-12.0); Platelet Count 189 K/mm3 (150-450); Red Blood Count 3.59 M/mm3 (4.1-5.4); Red Cell Distribution Width 13.1 % (11.5-14.0); White Blood Count 6.2 K/mm3 (4.0-10.5)
[2016-11-02 06:03] LABS: ALBUMIN 2.6 g/dL (3.4-5.0); BILIRUBIN,TOTAL 1.1 mg/dL (0.2-1.0); Carbon Dioxide 32.4 mEq/L (21-32); Potassium 3.6 mEq/L (3.5-5.1); Total Protein 5.9 gm/dL (6.4-8.2)
[2016-11-02] MEDS: Ritalin 5 MG PO SCH ×3 (07:32→16:39)
[2016-11-02] MEDS: Zofran 4 MG/2 ML VIAL IV PRN ×4 (07:35→21:02)
[2016-11-02] MEDS: SYNTHROID 100 MCG PO SCH (08:59)
[2016-11-02] MEDS: ENOXAPARIN SODIUM SQ SCH (08:59)
[2016-11-02] MEDS: COREG 12.5 MG PO SCH ×2 (08:59→21:02)
[2016-11-02] MEDS ORDERED: Duragesic 50MCG Patch TD SCH ×2 (10:00→14:00)
--- NOTE | 2016-11-02 11:15 | XRAY ---
Exam: CT of the abdomen and pelvis with IV contrast from 11/02/2016. CTDI: 22.75 Comparison: CT of the abdomen and pelvis without IV contrast from 10/29/2016. Indication: Right-sided abdominal pain radiating to back. Technique: Post-IV contrast axial images were obtained through the abdomen and pelvis during automated injection of 80 cc of Isovue-370 contrast material. No oral contrast was given. Reconstructed coronal and sagittal images were created and reviewed. Findings: Previously stated peripheral right lower lobe subcentimeter soft tissue lung nodule is not seen on the current study. This may have possibly related to some posterior right basilar subsegmental atelectasis. The current study reveals minimal posterior bibasilar pleural thickening with some adjacent posterior bibasilar discoid atelectasis, left greater than right. This has increased as compared to 10/29/2016. The transverse heart size is normal. EKG leads are noted in place. The liver is of normal size and is remarkable for a tiny hypodensity within the posterior aspect of the right lobe on axial image #24. This is too small to characterize, but likely represents a tiny hepatic cyst. No significant hepatic mass or biliary duct distention is seen. Surgical clips consistent with prior cholecystectomy are noted. Spleen is of normal size and reveals no mass. Both the pancreas and adrenal glands appear unremarkable. The right kidney measures 11.9 cm in length on sagittal image #65. The left kidney measures a maximum of 12.0 cm in length on coronal image #80. Both kidneys reveal multiple cysts. These are of varying size, but most are quite small. The largest cyst is seen within the mid to upper portion of the left kidney and measures 2.95 cm in diameter. Many of the cysts are subcentimeter in size. There are 2 tiny nonobstructing punctate calcifications adjacent to each other within the lower pole of the left kidney representing no change.. I see no obvious solid renal mass or hydronephrosis. No obvious hydroureter is seen. The abdominal aorta appears of normal diameter. No abnormal retroperitoneal or mesenteric lymphadenopathy is seen. There is no evidence of free intraperitoneal air. The anterior abdominal wall appears intact. I note some minimal subcutaneous air density within the upper left hemipelvis and lower right abdomen which is probably due to subcutaneous injections. Moderate colonic stool retention is seen. I note some scattered fluid-filled small bowel loops and air-fluid levels within small bowel within the abdomen. The small bowel is not distended. The appendix is identified within the right lower quadrant and appears unremarkable. There is a new mild amount of free intraperitoneal fluid within the cul-de-sac on axial images #78 through #83. The uterus is anteflexed and appears unremarkable. A urinary Elkins catheter balloon is seen within the urinary bladder which is essentially empty. Some air is seen within the nondependent portion of the urinary bladder, probably introduced at the time the catheter was placed. A small amount of excreted IV contrast is seen within the urinary bladder. The pelvic sidewalls appear unremarkable. The sigmoid colon appears relatively collapsed. A few small sigmoid colon diverticula cannot be excluded. No diverticulitis is evident. I see no fracture or suspicious bone lesion. On the sagittal images there appears to be mild degenerative disc disease at L4-L5 manifested by minimal narrowing of the interspace height associated with some anterior vertebral endplate spurring. There is also mild osteoarthritic spurring at the lower anterior margin of the L5 vertebral body and lower posterior margin of the L5 vertebral body. Impression: 1. The bowel gas pattern appears relatively nonspecific. I do note some nondilated small bowel within the abdomen with some air-fluid levels and fluid-filled small bowel. This is relatively nonspecific. Consider an ileus or enteritis. I see no findings to suggest bowel obstruction at this time. Nor do I see evidence of free intraperitoneal air. 2. Minimal posterior bibasilar pleural thickening is seen with some adjacent minimal atelectasis within the posterior lung sulci, left greater than right. Prior mentioned subcentimeter soft tissue nodule at the right lung base is not well-seen on the current study and may have been related to discoid atelectasis. 3. Bilateral renal cystic disease is evident. There are many bilateral renal cysts which are quite small. The kidneys do not appear significantly enlarged. Consider polycystic renal disease, adult type. 4. A couple tiny nonobstructing microcalculi are seen at the lower pole of the left kidney representing no change. 5. New mild amount of free fluid is seen within the lower posterior pelvis as compared to 10/29/2016. The reason for this is not evident. I do not see a definite ovarian cyst. Correlate clinically. 6. The appendix appears unremarkable. 7. Minimal sigmoid colon diverticulosis without evidence of diverticulitis.
[2016-11-02] MEDS: Sodium Chloride 0.9% 1000 ML 1,000 ML IV SCH (17:44)
[2016-11-02] MEDS: XANAX 1 MG PO SCH (21:02)
[2016-11-02] MEDS: ZOCOR 20MG PO SCH (21:03)
[2016-11-02] MEDS: MORPHINE SULFATE 2 MG INJ IV PRN (21:36)
[2016-11-03] MEDS: MORPHINE SULFATE 2 MG INJ IV PRN ×2 (02:32→05:54)
[2016-11-03] MEDS: Zofran 4 MG/2 ML VIAL IV PRN (02:34)
[2016-11-03] MEDS: Zosyn 3.375GM/100 Ml D5W 3.375 GM/100 ML IVPB IV SCH ×3 (05:23→18:44)
[2016-11-03 05:26] LABS: Mean Cell Volume 95.8 fl (78-100); Platelet Count 205 K/mm3 (150-450); Red Blood Count 3.54 M/mm3 (4.1-5.4); Red Cell Distribution Width 13.3 % (11.5-14.0); White Blood Count 5.5 K/mm3 (4.0-10.5)
[2016-11-03 05:39] LABS: Mean Corpuscular Hemoglobin 30.7 pg (26-32)
[2016-11-03 05:46] LABS: ALBUMIN 2.7 g/dL (3.4-5.0); ANION GAP 5.9 MEQ/L (5-15); Carbon Dioxide 33.3 mEq/L (21-32); MAGNESIUM 1.7 mg/dL (1.8-2.4); Potassium 3.3 mEq/L (3.5-5.1)
[2016-11-03] MEDS: Ritalin 5 MG PO SCH ×3 (07:45→18:44)
--- NOTE | 2016-11-03 07:58 | CONS ---
CONSULT DATE: 11/02/2016 REASON FOR CONSULT: Increased renal creatinine. HISTORY: The patient is a 51 year-old lady who was admitted for chronic kidney disease stage III. She has polycystic kidney disease. She was admitted to [facility] for complaints of nausea, vomiting and abdominal pain. She apparently had a recent hospital admission here as well where she had extensive work up and no clear reason was found. She complains of subjective nausea and vomiting and subjective low grade fever prior to coming to the hospital. In the hospital she does not seem to have any documented fever. Her nausea and vomiting seems to be pretty well controlled. She gives history of some discomfort with urination. Her urine culture is negative. She had a CT scan which showed bilateral cysts and scarring, no obstruction was seen. She has urinary retention with 600 cc prior to placing the Elkins catheter. Her BUN and creatinine were found to be elevated and nephrology was consulted. REVIEW OF SYSTEMS: She still complains of abdominal pain. Her pain is very vague. She is more localizing towards her right upper quadrant radiating to the back. She denies any active fever at this time. She denies any chest pain or shortness of breath. She denies any active urinary difficulty. She complains of the symptoms prior to coming to coming to the hospital. She is requiring oral pain medications. All of the systems were reviewed and as above. PAST MEDICAL HISTORY: Polycystic kidney disease, chronic kidney disease stage III, history of migraines, hypothyroidism, hypertension, osteoarthritis, fibromyalgia, anxiety, ADHD, depression, chronic fatigue syndrome, herniated disc disease. PAST SURGICAL HISTORY: Cholecystectomy. section. Tubal ligation. Carpal tunnel surgery. MEDICATIONS: Home and hospital medications were reviewed and per patient's admission sheet. Home medicines include amitriptyline. ALLERGIES: CODEINE, ABILIFY, ASPIRIN, VICODIN, IBUPROFEN, KETOLORAC, SEROQUEL, TRAMADOL, ACETAMINOPHEN. SOCIAL HISTORY: She denies any tobacco, alcohol or illicit substance abuse. FAMILY HISTORY: Positive for hypertension, kidney disease in the family. PHYSICAL EXAMINATION: The patient is awake, alert, oriented, in no current distress. VITAL SIGNS: Temperature 98.1F, pulse 70, respiratory rate 12, blood pressure 108/55. HEENT: Head normocephalic. Extraocular movements intact. Moist oral mucosa. NECK: No JVD. CHEST: Clear to auscultation bilaterally. CVS: Sinus rhythm. EXTREMITIES: No peripheral edema. ABDOMEN: Soft, mild vague tenderness. No palpable organomegaly. No guarding or rigidity. NEUROLOGIC: Alert, awake, oriented. She follows commands appropriately. SKIN: Warm and dry. LAB DATA AND TESTS: BUN 5, creatinine 1.25, SGOT 48, sodium 142, potassium 3.6. C-reactive protein 1.5. Urine culture is negative. Hemoglobin 11.6. CT scan shows stable bilateral renal scarring and cysts, nonobstructing left renal microcalculus noted, no other abnormality. Chest x-ray shows right subclavian line, no pneumothorax. ASSESSMENT AND PLAN: A 51 year-old lady with medical problems of: 1) Chronic kidney disease stage III. As stated above polycystic kidney disease, hypertension, nephrosclerosis. Renal functions stable. Continue to monitor fluid, electrolytes and renal function status closely. 2) Urinary retention. Likely secondary to amitriptyline. I recommend stopping amitriptyline and using alternative medication. Discontinue Elkins catheter and then monitor urine closely. Ge5 a post-void residual urine and see if she still needs a Elkins catheter. 3) Abdominal pain of unclear etiology. Likely not related to the kidneys. I recommend general pain medications and management of anxiety and psychiatric issues management. 4) Nausea and vomiting. No clear surgical cause or any renal related causes seems to be found. Recommend trying to increase diet and advancing diet and see if she is tolerating it. I will decrease IV fluids. She seems adequately hydrated at this time. 5) Hypertension. Blood pressure under control. I recommend continuing present medications and pain medications. 6) Hypothyroidism. Not having issues. I recommend to follow closely. Thank you for the consultation on this patient. Please do not hesitate to contact me if you have any questions.
[2016-11-03] MEDS: COREG 12.5 MG PO SCH ×2 (10:07→22:40)
[2016-11-03] MEDS: SYNTHROID 100 MCG PO SCH (10:07)
[2016-11-03] MEDS: ENOXAPARIN SODIUM SQ SCH (10:07)
[2016-11-03] MEDS: Dilaudid 4 MG Tab PO PRN ×3 (10:14→22:46)
--- NOTE | 2016-11-03 14:30 | XRAY ---
Exam: Urinary bladder ultrasound from 11/03/2016 Comparison: CT of the abdomen and pelvis with IV contrast from 11/02/2016. Indication: Urine retention. Findings: The urine filled urinary bladder measures 6.65 cm in AP dimension, 7.73 cm in width, and 7.32 cm in length yielding an estimated urinary bladder 197 ML's. Mild reverberation artifact is seen within the urinary bladder. No mass or urinary bladder wall thickening is seen. Distal ureteral jets were seen bilaterally with color-flow imaging. The patient was subsequently allowed to void and repeat images of the urinary bladder were obtained. The urinary bladder appeared completely empty with no urine remaining within the bladder. Impression: 1. The filled urinary bladder images appeared unremarkable. Bilateral distal ureteral jets were seen with color flow imaging. 2. Complete emptying of the urinary bladder on the post void images.
[2016-11-03] MEDS: Sodium Chloride 0.9% 1000 ML 1,000 ML IV SCH (15:33)
[2016-11-03] MEDS: ZOCOR 20MG PO SCH (22:41)
[2016-11-03] MEDS: XANAX 1 MG PO SCH (22:41)
[2016-11-04] MEDS: Zosyn 3.375GM/100 Ml D5W 3.375 GM/100 ML IVPB IV SCH ×2 (00:10→05:27)
[2016-11-04] MEDS: Dilaudid 4 MG Tab PO PRN (02:54)
[2016-11-04 05:38] LABS: Mean Cell Volume 96.5 fl (78-100); Platelet Count 202 K/mm3 (150-450); Red Cell Distribution Width 13.7 % (11.5-14.0)
[2016-11-04 05:47] LABS: Mean Corpuscular Hemoglobin 30.8 pg (26-32)
[2016-11-04 06:00] LABS: ALBUMIN 2.7 g/dL (3.4-5.0); ANION GAP 6.6 MEQ/L (5-15); BILIRUBIN,TOTAL 0.5 mg/dL (0.2-1.0); Carbon Dioxide 32.3 mEq/L (21-32); Potassium 3.5 mEq/L (3.5-5.1)
--- NOTE | 2016-11-04 07:48 | PCM.DCORD ---
- Discharge Discharge Date: 11/04/16 Disposition: Home, Self-Care Condition: Fair Prescriptions: Continue Levothyroxine Sodium 75 Mcg [Synthroid 75 Mcg] 100 mcg PO DAILY Carvedilol 12.5 mg [Coreg 12.5 mg] 12.5 mg PO BID Methylphenidate 5 mg [Ritalin 5 MG] 10 mg PO TID Alprazolam [Xanax Xr] 2 mg PO HS Simvastatin [Zocor] 20 mg PO HS Alprazolam [Xanax] 2 mg PO QAM PRN PRN Reason: Anxiety Discontinued Amitriptyline HCl [Elavil] 100 mg PO HS Follow up with: AMIRAH BRYAN [CONSULTING PHYSICIAN] - 1 Week ([place] office) ELLIOTT DOBBS [NON-STAFF PHY W/O PRIVILEGES] - 1 Week Forms: Patient Portal Information
[2016-11-04 07:56] VITALS: BP 100/50; PULSE 83; O2SAT 92
[2016-11-04] MEDS: ENOXAPARIN SODIUM SQ SCH (08:31)
[2016-11-04] MEDS: COREG 12.5 MG PO SCH (08:32)
[2016-11-04] MEDS: Ritalin 5 MG PO SCH (08:32)
[2016-11-04] MEDS: SYNTHROID 100 MCG PO SCH (08:32)
--- NOTE | 2016-11-05 08:45 | DS ---
DISCHARGE DIAGNOSES: 1) FLANK PAIN. 2) URINARY RETENTION. 3) MILD HYPOXIA. 4) MILD RENAL INSUFFICIENCY. 5) POOR INTRAVENOUS ACCESS. HISTORY: The patient is a 51 year-old white female who was admitted to the hospital with complaints of severe flank pain, nausea and vomiting. The pain was undetermined origin from the evaluation in the emergency room. It is of note that the patient also had admission a few admissions with complete evaluation both here and at [facility] with no significant findings. The patient does see a sporting goods sales associate in [place] for follow up and normally follows with Dr. Chalino Choe as her primary care physician. HOSPITAL COURSE: The patient was admitted to the medicine [facility]ero. She was found to have 600 cc residual post-void and Elkins catheter was placed to help with her urinary retention problem. The patient's initial evaluation led us to believe she had pyelonephritis although the urine culture was negative. The white blood cell count was normal and she had no fever. The patient's evaluation otherwise on CT scan findings led us to do ultrasound of the kidney due to the presence of a 3.5 cm undetermined mass in the kidney but ultrasound showed this to be a cyst. The patient has persisted to complain of flank pain during her entire stay. On the morning of 11/03/2016, she was found lying on the floor. The patient apparently had no injuries. She reports that she just kind of blacked out. She was able to immediately get up basically unassisted and get back in bed. At the time her vital signs were entirely normal. On consultation from her sporting goods sales associate the physician felt that there may be a lot of psychological overlay in her medical problems. We tend to agree with that as we had found no source for her continued complaints of pain. She did have a slight elevation of liver enzymes for a while. She had some small amount of obstructing stones in the kidney that was found as well. Her laboratory studies at the time of discharge showed a glucose of 98, BUN 12, creatinine 1.27. Her electrolytes were essentially normal. Liver enzymes were normal. Bilirubin was normal. The white blood cell count was 6,000. Her hemoglobin 10.5, PLT count 202,000. She had a mono screen negative. She had influenza A/B and respiratory syncytial virus which were negative. She had a strep screen which was negative. At this point the patient is felt to be ready for discharge home and we are concerned the patient is bordering on malingering. She did have morphine and Fentanyl for pain control during her stay. She reports she has allergies to Vicodin and codeine. The patient will be discharged home at this time to continue to use her home medication. She will be given a prescription for enough pain medication for her to get in to see her primary care physician. She will be given Zofran for nausea also. She was instructed to come back to the hospital if she has any worsening of her problems. We did discuss transferring her to another facility should her problems persist as we have been unable to determine the cause of underlying problems.
== END 2016-11-04 11:25 | disposition home or self-care (01) | DRG 392 ==
LOC: ED 15:00 → MED SURG 19:36 → OBSVTOIN 10-30 09:00
PROVIDERS: ADMIT Family Medicine; ATTEND Family Medicine
PROC: 05H533Z Insertion of Infusion Device into Right Subclavian Vein, Percutaneous Approach (ICD-10-PCS; principal; 2016-10-30)
DX: R10.11 Right upper quadrant pain (principal); N12 Tubulo-interstitial nephritis, not specified as acute or chronic; Q61.3 Polycystic kidney, unspecified; R33.9 Retention of urine, unspecified; R09.02 Hypoxemia; N28.9 Disorder of kidney and ureter, unspecified; F41.8 Other specified anxiety disorders; M79.7 Fibromyalgia; E86.0 Dehydration; I12.9 Hypertensive chronic kidney disease with stage 1 through stage 4 chronic kidney disease, or unspecified chronic kidney disease; N18.3 Chronic kidney disease, stage 3 (moderate); E03.9 Hypothyroidism, unspecified; M19.90 Unspecified osteoarthritis, unspecified site; F90.9 Attention-deficit hyperactivity disorder, unspecified type; R53.82 Chronic fatigue, unspecified
CPT/HCPCS: 36415; 71010; 74176; 74177; 76705; 80048; 80053; 81002; 83605; 83690; 83735; 85025; 85027; 85652; 86140; 86308; 87070; 87077; 87186; 87430; 87631; 94760; 94762; 96374; 99285; G0378; J1650; J2270; J2405; J2543; J2550; A9270-GY